=== PATIENT | female | born 1955 | race Caucasian/White ===

== ENCOUNTER → 2019-09-26 10:54 | Outpatient (BNVA) | payer MEDICARE, MEDICAID, SELFPAY | PROVIDERS: Family Provider Nurse Practitioner; PCP Nurse Practitioner; Visit Provider Nurse Practitioner | DX: F33.2 Major depressive disorder, recurrent severe without psychotic features (principal); F17.210 Nicotine dependence, cigarettes, uncomplicated | CPT/HCPCS: 99213 ==

== ENCOUNTER 2019-10-26 13:08 | Emergency (ER) | payer MEDICARE, MEDICAID, SELFPAY ==
[2019-10-26 13:15] VITALS: BP 126/72; PULSE 78; RESP 19; TEMP 36.8; O2SAT 96; BMI 21.9
--- NOTE | 2019-10-26 13:23 | XR_ITS ---
WS: [id number] PORTABLE CHEST HISTORY: dyspnea/cough COMPARISON: 06/27/2018 Mild pulmonary hyperexpansion. Linear areas of atelectasis at the lung bases. Small amount pleural th ickening. No pneumothorax. Cardiac size: Normal. Mediastinum/Aorta: Mild atherosclerosis aorta. Thoracolumbar scoliosis. XR/XR chest 1V portable [id number] IMPRESSION: Chronic emphysema and partially calcified aorta. Minimal pleural thickening versus pleural effusions.
--- NOTE | 2019-10-26 13:25 | ED_ITS ---
HPI - SOB/Dyspnea General: Chief Complaint: Shortness of Breath/Dyspnea Stated Complaint: cough, sob Time Seen by Provider: 10/26/19 13:15 History of Present Illness: HPI Narrative: 64-year-old female presents to the emergency room with complaint of shortness of breath, she has had a mildly productive cough. She reports subjective low-grade fever. She states she has a history of COPD she uses a Ventolin inhaler as needed but no maintenance inhaled medications. She has a daughter who is been tested for [place] 19 but does not yet had a result. She does not identify any specific recent travel to areas considered to be hotspots. Associated symptoms: Deny abdominal pain, chest pain, fever(s), nausea, orthopnea or vomiting Review of Systems Const: Denies: fever, chills, body aches, change in appetite, fatigue or malaise ENMT: Denies: throat pain, ear pain, nasal discharge or nasal congestion Card: Denies: chest pain, edema, shortness of breath on exertion or shortness of breath when lying down Resp: Denies: shortness of breath, productive cough or non-productive cough GI: Denies: abdominal pain, nausea, vomiting, vomiting blood, coffee grounds in vomit, diarrhea, constipation, bloating, blood in stool or black tarry stool : Denies: flank pain, difficulty urinating, painful urination, urinary frequency or urinary urgency Skin/Breast: Denies: rash or itching [facility] ED PFSH: Medical History (Updated 10/26/19 @ 15:22 by Reza Angelo DO) Major depressive disorder, recurrent severe without psychotic features Nicotine dependence, cigarettes, uncomplicated Social History (Updated 09/26/19 @ 11:06 by Stephanie Molina LPN) Smoking and tobacco status: current every day smoker cigarettes Packs smoked per day: 1 Smoking risk assessment/counseling performed?: Yes Tobacco counseling given: counseling >3 minutes Physical Exam Const: COMMON NORMALS: no apparent distress GENERAL APPEARANCE: cooperative and comfortable ORIENTATION/CONSCIOUSNESS: Yes awake, Yes oriented to person, Yes oriented to place and Yes oriented to time HENMT: COMMON NORMALS: normocephalic, head/scalp atraumatic, hearing grossly normal bilaterally, external ears normal, EAC's normal, TM's normal bilaterally, nasal mucous membranes and turbinates normal, moist oral mucous membranes and oropharynx normal HEAD & SCALP: normocephalic and atraumatic NOSE: nasal mucous membranes and turbinates normal EXTERNAL EAR: Yes external ears normal EXTERNAL AUDITORY CANAL: EAC's normal TYMPANIC MEMBRANE: TM's normal bilaterally Eye: COMMON NORMALS: PERRL, EOMs intact bilaterally, conjunctivae normal and no scleral icterus CONJUNCTIVA: Yes conjunctivae normal PUPIL: Yes PERRL Neck/C-Spine: COMMON NORMALS: full ROM, no lymphadenopathy, supple and no JVD Lymph: LYMPHATIC: no lymphadenopathy noted and no lymphedema noted Resp: COMMON NORMALS: normal respiratory effort, no retractions, no use of accessory muscles and clear to auscultation bilaterally AUSCULTATION: clear to auscultation bilaterally Cardio: COMMON NORMALS: no JVD, regular rate, regular rhythm and no murmurs RATE: regular rate RHYTHM: regular rhythm GI: COMMON NORMALS: soft to palpation and no hepatosplenomegaly AUSCULTATION: Yes normoactive bowel sounds PALPATION: Yes soft, No tender, No guarding and Yes no hepatosplenomegaly Extremity: COMMON NORMALS: normal to inspection, normal capillary refill, no clubbing, cyanosis or edema, no calf tenderness and no pedal edema Neuro: SENSORIUM/ORIENTATION: Yes oriented to person, Yes oriented to place and Yes oriented to time Skin: COMMON NORMALS: no rashes or lesions noted GENERAL SKIN EXAM: no rashes or lesions noted Course Vital Signs: Vital signs: Vital Signs Temperature 98.3 F 10/26/19 13:15 Pulse Rate 75 10/26/19 15:31 Respiratory Rate 16 10/26/19 15:31 Blood Pressure 124/80 10/26/19 15:31 Pulse Oximetry 95 10/26/19 15:31 MDM - SOB/Dyspnea MDM Narrative: Medical decision making narrative: Patient not having any respiratory distress chest x-ray clear refilled her albuterol inhaler she had 1 in the past she has been using it recently. It is effective the albuterol inhaler is quite old she thinks is nearly empty. Strongly encouraged her to follow-up with her primary care doctor for evaluation for long-term maintenance medications. Return if she has further problems. Lab Data: Labs: Lab Results 10/26/19 10/26/19 10/26/19 Range/Units 13:40 13:40 13:45 WBC 8.8 (4.0-10.0) 10^3/ uL RBC 4.41 (4.1-5.3) 10^6/u L Hgb 13.4 (11.5-15.3) g/dL Hct 40.8 (37.0-47.0) % MCV 92.5 (81-99) fL MCH 30.4 (28.0-34.0) pg MCHC 32.8 (30.0-36.0) g/dL RDW 13.1 (12.1-15.1) % Plt Count 155 (130-400) 10^3/c mm MPV 11.4 H (7.4-10.4) fL Neut % (Auto) 57.4 % Lymph % (Auto) 33.4 % [place] % (Auto) 6.6 % Eos % (Auto) 1.8 % Baso % (Auto) 0.5 % Neut # (Auto) 5.1 (1.8-7.7) 10^3/u L Lymph # (Auto) 2.9 (0.8-4.8) 10^3/u L [place] # (Auto) 0.6 (0.2-0.9) 10^3/u L Eos # (Auto) 0.2 (0.0-0.8) 10^3/u L Baso # (Auto) 0.0 (0.0-0.1) 10^3/u L Nucleated RBC % (a uto) 0 % Nucleated RBCs # 0.0 /100WBC Sodium 136 (136-145) mmol/L Potassium 3.7 (3.5-5.1) mmol/L Chloride 99 (98-107) mmol/L Carbon Dioxide 26 (22-29) mmol/L Anion Gap 14.7 (5-19) BUN 12 (8-23) mg/dL Creatinine 0.8 (0.5-0.9) mg/dL GFR Calculation 72.0 L (90-130) mL/min Glucose 90 (65-115) mg/dL Calculated Osmolal ity 278 L (285-295) mOsm/k g Calcium 9.6 (8.5-10.5) mg/dL Total Bilirubin 0.4 (0.15-1.2) mg/dL AST 23 (0-32) U/L ALT 17 (0-33) U/L Alkaline Phosphata se 63 (35-105) IU/L Total Protein 7.0 (6.6-8.7) g/dL Albumin 4.4 (3.5-5.2) g/dL Globulin 2.6 (1.3-4.6) g/dL Influenza Type A A g Negative (Negative) Influenza Type B A g Negative (Negative) Discharge Plan Discharge Patient Disposition: Home, Self-Care Clinical Impression: COPD exacerbation Condition: Stable Prescriptions: New albuterol sulfate 90 mcg/actuation HFA aerosol inhaler 2 inh INHALATION Q4H PRN (Reason: shortness of breath or wheezing) Qty: 18 RF: 0 No Action sertraline 100 mg tablet 200 mg PO DAILY Qty: 60 RF: 2 iron 325 mg (65 mg iron) Tablet 325 mg PO DAILY RF: 0 Vitamin D3 400 unit Capsule 400 unit PO DAILY RF: 0 Ambien 5 mg tablet 5 mg PO BEDTIME RF: 0 Discharge Orders: Discharge Order (Routine); Ordered 10/26/19 Ordered By: Reza Angelo Referrals: Flower Blackburn FNP [Primary Care Provider] - Discharge Diet: Usual diet Discharge Activity: Increase activity as tolerated Activity Restrictions/Additional Instructions: Low up with your primary care provider for further evaluation and for initiation of long-term contro of COPD. L Discharge Date/Time: 10/26/19 15:33 Coding Level of Care Code ED Backup Sawyer for Nika Fwd Exam Comprehensive
[2019-10-26 13:45] LABS: Basophils % 0.5 %; Eosinophils # 0.2 10^3/uL (0.0-0.8); Eosinophils % 1.8 %; Hematocrit 40.8 % (37.0-47.0); Hemoglobin 13.4 g/dL (11.5-15.3); Lymphocytes # 2.9 10^3/uL (0.8-4.8); Lymphocytes % 33.4 %; Mean Corpuscular HGB Conc 32.8 g/dL (30.0-36.0); Mean Corpuscular Hemoglobin 30.4 pg (28.0-34.0); Mean Corpuscular Volume 92.5 fL (81-99); Mean Platelet Volume 11.4 fL (7.4-10.4); Monocytes # 0.6 10^3/uL (0.2-0.9); Monocytes % 6.6 %; Neutrophils # 5.1 10^3/uL (1.8-7.7); Neutrophils % 57.4 %; Nucleated Red Blood Cells % 0 %; Platelet Count 155 10^3/cmm (130-400); Red Blood Count 4.41 10^6/uL (4.1-5.3); Red Cell Distribution Width 13.1 % (12.1-15.1); White Blood Count 8.8 10^3/uL (4.0-10.0)
[2019-10-26 13:52] VITALS: BP 99/71; PULSE 75; RESP 16; O2SAT 96
[2019-10-26 14:06] LABS: Alanine Aminotransferase 17 U/L (0-33); Albumin Level 4.4 g/dL (3.5-5.2); Alkaline Phosphatase 63 IU/L (35-105); Anion Gap 14.7 (5-19); Aspartate Amino Transferase 23 U/L (0-32); Blood Urea Nitrogen 12 mg/dL (8-23); Calcium 9.6 mg/dL (8.5-10.5); Carbon Dioxide 26 mmol/L (22-29); Chloride 99 mmol/L (98-107); Globulin 2.6 g/dL (1.3-4.6); Glucose 90 mg/dL (65-115); Osmolality Calculated 278 mOsm/kg (285-295); Potassium 3.7 mmol/L (3.5-5.1); Sodium 136 mmol/L (136-145); Total Bilirubin 0.4 mg/dL (0.15-1.2)
[2019-10-26 14:34] LABS: Influenza A by IFA Negative (Negative); Influenza B by IFA Negative (Negative)
[2019-10-26 14:39] VITALS: BP 109/78; PULSE 77; RESP 16
[2019-10-26 15:31] VITALS: BP 124/80; PULSE 75; RESP 16; O2SAT 95
== END 2019-10-26 15:33 | disposition home or self-care (01) ==
PROVIDERS: Emergency Provider Family Medicine; Family Provider Nurse Practitioner; PCP Nurse Practitioner
DX: J44.1 Chronic obstructive pulmonary disease with (acute) exacerbation (principal); F33.2 Major depressive disorder, recurrent severe without psychotic features; F17.210 Nicotine dependence, cigarettes, uncomplicated
CPT/HCPCS: 12345; 36415; 71045; 80053; 85025; 87804; 99282; 99283

== ENCOUNTER → 2019-12-19 07:39 | Outpatient (BNVA) | payer MEDICARE, MEDICAID, SELFPAY | PROVIDERS: Family Provider Nurse Practitioner; PCP Nurse Practitioner; Visit Provider Nurse Practitioner | DX: F33.2 Major depressive disorder, recurrent severe without psychotic features (principal) | CPT/HCPCS: 99213 ==

== ENCOUNTER 2020-01-06 19:24 | Emergency (ER) | payer MEDICARE, MEDICAID, SELFPAY ==
--- NOTE | 2020-01-06 19:33 | XR_ITS ---
WS: [id number] XR wrist RT min 3V* [id number] REASON FOR EXAM: injury FINDINGS: There is evidence of widening of the interval between the scaphoid and lunate. Measured 4.4 1 mm. The ulna and radius were normal. The carpal bones otherwise were normal as well as the metacarpals. XR/XR wrist RT min 3V* [id number] IMPRESSION: Diastases of the scaphoid lunate interval.
[2020-01-06 19:50] VITALS: BP 126/71; PULSE 83; RESP 18; TEMP 37.1; O2SAT 97; BMI 21.2
--- NOTE | 2020-01-06 21:22 | W.ED.EXTPRO ---
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 Patient reports pain in the wrist area. Patient appears well. No obvious deformity is noted. MD Complaint: extremity pain Review of Systems General: Reports: 10 or more systems reviewed and unremarkable except in HPI and below Musc: Reports: joint pain (Right wrist) PFS ED PFSH: Medical History (Updated 01/06/20 @ 21:32 by SKYLAR Rabago) Major depressive disorder, recurrent severe without psychotic features Nicotine dependence, cigarettes, uncomplicated Social History (Updated 09/26/19 @ 11:06 by Stephanie Molina LPN) Smoking and tobacco status: current every day smoker cigarettes Packs smoked per day: 1 Smoking risk assessment/counseling performed?: Yes Tobacco counseling given: counseling >3 minutes Physical Exam Const: COMMON NORMALS: no acute distress and patient oriented x3 GENERAL APPEARANCE: cooperative HENMT: COMMON NORMALS: normocephalic and Normal external nose present HEAD & SCALP: normal to inspection and normocephalic NOSE: Normal external nose present MOUTH: Normal oral and palatal mucosa present THROAT: posterior oropharynx normal Eye: GENERAL EYE: appearance normal, both eyes and all related structures Neck/C-Spine: COMMON NORMALS: full ROM Chest: COMMONS NORMALS: normal inspection of the chest Resp: COMMON NORMALS: normal respiratory effort EFFORT & INSPECTION: Yes able to speak in complete sentences Cardio: COMMON NORMALS: regular rate and regular rhythm RATE: regular rate RHYTHM: regular rhythm GI: COMMON NORMALS: non-tender : COMMON NORMALS: Yes no CVA tenderness BLADDER/KIDNEY EXAM: Yes no CVA tenderness Back/Pelvis: COMMON NORMALS: no CVA tenderness and thoracic and lumbar spine normal to inspection Extremity: NARRATIVE EXTREMITY EXAM: Tenderness is noted on palpation to the right wrist. No deformity or crepitus is noted in the joint. Minimal to no swelling is noted. Neuro: COMMON NORMALS: patient oriented x3 and moves all extremities Psych: COMMON NORMALS: mental status grossly normal and cooperative Skin: COMMON NORMALS: no rashes or lesions noted GENERAL SKIN EXAM: no rashes or lesions noted Course Vital Signs: Vital signs: Vital Signs Temperature 98.8 F 01/06/20 19:50 Pulse Rate 83 01/06/20 19:50 Respiratory Rate 18 01/06/20 19:50 Blood Pressure 126/71 01/06/20 19:50 Pulse Oximetry 97 01/06/20 19:50 MDM - Extremity (Nontraumatic) MDM Narrative: Medical decision making narrative: Patient comes in for injury to her the right wrist. Exam noted no significant deformity and minimal swelling. Differential diagnosis includes but not limited to fracture, sprain, contusion. X-ray showed no obvious fracture. Reviewed exam with patient with recommendations for treatment and follow-up. Patient reported understanding. Discharge Plan Discharge Patient Disposition: Home, Self-Care Clinical Impression: Sprain and strain of wrist Condition: Stable Prescriptions: No Action sertraline 100 mg tablet 200 mg PO DAILY Qty: 60 RF: 2 Ambien 5 mg tablet 5 mg PO BEDTIME Qty: 30 RF: 2 iron 325 mg (65 mg iron) Tablet 325 mg PO DAILY RF: 0 Vitamin D3 400 unit Capsule 400 unit PO DAILY RF: 0 albuterol sulfate 90 mcg/actuation HFA aerosol inhaler 2 inh INHALATION Q4H PRN (Reason: shortness of breath or wheezing) Qty: 18 RF: 0 Discharge Orders: Discharge Order (Routine); Ordered 01/06/20 Ordered By: Severo King Referrals: Flower Blackburn FNP [Primary Care Provider] - Discharge Diet: Usual diet Discharge Activity: Increase activity as tolerated Patient Instructions: Sprains - Wrist Activity Restrictions/Additional Instructions: Elastic bandage for support and comfort. Activity as tolerated. Use acetaminophen or ibuprofen for pain. Follow-up with primary care in 1 week as needed. Coding Level of Care Code ED Art Objects Salesperson for Martyg Fwd Exam Comprehensive
== END 2020-01-06 21:49 | disposition home or self-care (01) ==
PROVIDERS: Emergency Provider Nurse Practitioner Family; PCP Nurse Practitioner
DX: S63.501A Unspecified sprain of right wrist, initial encounter (principal); S66.911A Strain of unspecified muscle, fascia and tendon at wrist and hand level, right hand, initial encounter; W03.XXXA Other fall on same level due to collision with another person, initial encounter; F17.210 Nicotine dependence, cigarettes, uncomplicated
CPT/HCPCS: 12345; 73110; 99281; 99282

== ENCOUNTER → 2020-05-19 07:39 | Outpatient (BNVA) | payer MEDICARE, MEDICAID, SELFPAY | PROVIDERS: PCP Nurse Practitioner; Visit Provider Nurse Practitioner | DX: F33.2 Major depressive disorder, recurrent severe without psychotic features (principal); F17.210 Nicotine dependence, cigarettes, uncomplicated | CPT/HCPCS: 99213 ==

== ENCOUNTER → 2020-08-06 07:43 | Outpatient (BNVA) | payer MEDICARE, MEDICAID, SELFPAY | PROVIDERS: PCP Nurse Practitioner; Visit Provider Nurse Practitioner | DX: F33.2 Major depressive disorder, recurrent severe without psychotic features (principal); F17.210 Nicotine dependence, cigarettes, uncomplicated | CPT/HCPCS: 99213 ==

== ENCOUNTER → 2020-11-11 07:52 | Outpatient (BNVA) | payer MEDICARE, MEDICAID, SELFPAY | PROVIDERS: PCP Nurse Practitioner; Visit Provider Nurse Practitioner | DX: F33.2 Major depressive disorder, recurrent severe without psychotic features (principal); F17.210 Nicotine dependence, cigarettes, uncomplicated | CPT/HCPCS: 99214 ==

== ENCOUNTER → 2021-02-03 12:44 | Outpatient (BNVA) | payer MEDICARE, MEDICAID, SELFPAY | PROVIDERS: PCP Nurse Practitioner; Visit Provider Nurse Practitioner | DX: F33.2 Major depressive disorder, recurrent severe without psychotic features (principal); F17.210 Nicotine dependence, cigarettes, uncomplicated | CPT/HCPCS: 99214 ==

== ENCOUNTER → 2021-05-06 08:21 | Outpatient (BNVA) | payer MEDICARE, MEDICAID, SELFPAY | PROVIDERS: PCP Nurse Practitioner; Visit Provider Nurse Practitioner | DX: F33.2 Major depressive disorder, recurrent severe without psychotic features (principal); F17.210 Nicotine dependence, cigarettes, uncomplicated | CPT/HCPCS: 99214 ==

== ENCOUNTER 2021-05-21 21:24 | Inpatient (IN) | payer MEDICARE, MEDICAID, SELFPAY ==
[2021-05-21 21:28] VITALS: BP 105/61; PULSE 90; RESP 24; TEMP 37.1; O2SAT 92; BMI 19.5
[2021-05-21 21:34] VITALS: BP 105/61; PULSE 86; RESP 18; TEMP 37.1; O2SAT 96
--- NOTE | 2021-05-21 21:42 | XRR_ITS ---
PROCEDURE INFORMATION: Exam: XR Right Hip Exam date and time: 05/21/2021 9:42 PM Age: 65 years old Clinical indication: Injury or trauma; Fall; Fracture of pelvis & hip; Right; Traumatic fracture; Neck of femur; Not specified TECHNIQUE: Imaging protocol: XR Right hip. Views: 1 view hip with pelvis when performed. COMPARISON: No relevant prior studies available. FINDINGS: Bones/joints: There is an acute comminuted right intertrochanteric hip fracture. No dislocation. The femoral head and neck remain intact. The right acetabulum and rami are intact. Soft tissues: Unremarkable. XR/XR hip RT 2-3V wo/w pel* [id number] IMPRESSION: Acute right intertrochanteric fracture Radiation Dose CTDIVOL = (mGy): DLP = (mGy-cm)
--- NOTE | 2021-05-21 21:49 | ED_ITS ---
HPI - Fall General: Chief Complaint: Fall Stated Complaint: FALL/HIP PAIN Time Seen by Provider: 05/21/21 21:30 Source: patient and EMS Mode of arrival: EMS Limitations: no limitations History of Present Illness: HPI Narrative: 65-year-old female who fell earlier this morning of a chair she fell onto her right side states she landed on her hip and has not been able to stand up or move that leg since then she has pain she rates a 7 out of 10 denies any other injuries denies any her head denies any neck or back pain. Her pain is sharp in nature Associated symptoms-after fall: Denies abdominal pain, chest pain or headache(s) Review of Systems Const: Denies: fever(s), chills, body aches or change in appetite Eyes: Denies: blurry vision or eye discomfort ENMT: Denies: throat pain or dental pain Card: Denies: chest pain Resp: Denies: dyspnea GI: Denies: abdominal pain, nausea, vomiting or diarrhea : Denies: dysuria Musc: Reports: extremity pain Skin/Breast: Denies: rash Neuro: Denies: headache(s) Psych: Denies: depression Rajeev/Lymph: Denies: easy bruising All/Imm: Denies: urticaria PFSH ED PFSH: Medical History (Updated 05/21/21 @ 22:18 by Dewyane Meeks MD) Major depressive disorder, recurrent severe without psychotic features Nicotine dependence, cigarettes, uncomplicated Psychiatric care Social History (Updated 09/26/19 @ 11:06 by Stephanie Molina LPN) Smoking and tobacco status: current every day smoker cigarettes Packs smoked per day: 1 Smoking risk assessment/counseling performed?: Yes Tobacco counseling given: counseling >3 minutes Physical Exam Const: COMMON NORMALS: no acute distress, patient oriented x3 and healthy appearing HENMT: COMMON NORMALS: normocephalic and atraumatic HEAD & SCALP: normocephalic and atraumatic Eye: COMMON NORMALS: Equal, round and reactive pupils present and EOMs intact bilaterally PUPIL: Yes Equal, round and reactive pupils present Neck/C-Spine: COMMON NORMALS: full ROM and supple Chest: COMMONS NORMALS: normal inspection of the chest and normal palpation of entire chest wall Resp: COMMON NORMALS: normal respiratory effort, No retractions, No use of accessory muscles and clear to auscultation bilaterally AUSCULTATION: clear to auscultation bilaterally Cardio: COMMON NORMALS: regular rate, regular rhythm and No murmurs present (Cardio) RATE: regular rate RHYTHM: regular rhythm GI: COMMON NORMALS: Normal to inspection, nondistended, normoactive bowel sounds present, Soft to palpation, non-tender and no masses PALPATION: Yes Soft to palpation Extremity: NARRATIVE EXTREMITY EXAM: Tenderness over right hip Neuro: COMMON NORMALS: patient oriented x3, moves all extremities and no focal motor deficits Psych: COMMON NORMALS: mental status grossly normal, Normal thought process present and cooperative THOUGHT PROCESS: Normal thought process present Skin: COMMON NORMALS: no rashes or lesions noted and no wounds GENERAL SKIN EXAM: no rashes or lesions noted Course Vital Signs: Vital signs: Vital Signs Temperature 98.8 F 05/21/21 21:34 Pulse Rate 86 05/21/21 21:34 Respiratory Rate 18 05/21/21 21:34 Blood Pressure 105/61 05/21/21 21:34 Pulse Oximetry 96 05/21/21 21:34 MDM - Fall MDM Narrative: Medical decision making narrative: Patient presents with a hip fracture from a fall she has no other signs of any other major injuries had no head injury spoke to orthopedist and hospitalist and will admit. Lab Data: Labs: Lab Results 05/21/21 05/21/21 05/21/21 21:30 21:30 21:30 WBC 18.2 10^3/uL H 10 ^3/uL (4.0-10.0) RBC 4.33 10^6/uL 10^6 /uL (4.1-5.3) Hgb 13.0 g/dL g/dL (11.5-15.3) Hct 39.7 % % (37.0-47.0) MCV 91.7 fl fl (81-99) MCH 30.0 pg pg (28.0-34.0) MCHC 32.7 g/dL g/dL (30.0-36.0) RDW 13.2 % % (12.1-15.1) Plt Count 167 10^3/cmm 10^3 /cmm (130-400) MPV 12.4 fL H fL (7.4-10.4) Neut % (Auto) 88.8 % % Lymph % (Auto) 5.9 % % [place] % (Auto) 4.5 % % Eos % (Auto) 0.1 % % Baso % (Auto) 0.3 % % Neut # (Auto) 16.19 10^3/uL H 1 0^3/uL (1.8-7.7) Lymph # (Auto) 1.1 10^3/uL 10^3/ uL (0.8-4.8) [place] # (Auto) 0.8 10^3/uL 10^3/ uL (0.2-0.9) Eos # (Auto) 0.0 10^3/uL 10^3/ uL (0.0-0.8) Baso # (Auto) 0.1 10^3/uL 10^3/ uL (0.0-0.1) Nucleated RBC % (a uto) 0 % % Nucleated RBCs # 0.0 /100WBC /100W BC PT 12.90 SECONDS SEC ONDS (12.1-14.9) INR 0.94 (0.8-1.2) Sodium 136 mmol/L mmol/L (136-145) Potassium 3.8 mmol/L mmol/L (3.5-5.1) Chloride 100 mmol/L mmol/L (98-107) Carbon Dioxide 25 mmol/L mmol/L (22-29) Anion Gap 14.8 (5-19) BUN 11 mg/dL mg/dL (8-23) Creatinine 0.6 mg/dL mg/dL (0.5-0.9) GFR Calculation 100.0 mL/min mL/m in (90-130) Calcium 9.4 mg/dL mg/dL (8.5-10.5) Total Bilirubin 0.4 mg/dL mg/dL (0.15-1.2) AST 23 U/L U/L (0-32) ALT 16 U/L U/L (0-33) Alkaline Phosphata se 67 IU/L IU/L (35-105) Total Protein 6.8 g/dL g/dL (6.6-8.7) Albumin 4.1 g/dL g/dL (3.5-5.2) Globulin 2.7 g/dL g/dL (1.3-4.6) Imaging Data^: xr r hip: Attestation: I personally reviewed and interpreted this imaging study as follows: My impression: r hip fx EKG Data^: EKG 1: Attestation: I personally reviewed and interpreted this EKG as follows: EKG interpretation date: 05/21/21 EKG interpretation time: 22:28 Interpretation: nsr no st or t wave abnormalities qrs 72 qtc 397 Discharge Plan Discharge Patient Disposition: Admitted As Inpatient Clinical Impression: Closed hip fracture Qualifiers: Encounter type: initial encounter Laterality: right Qualified Code(s): S72.001A - Fracture of unspecified part of neck of right femur, initial encounter for closed fracture Condition: Stable Coding Level of Care Code ED [employer] Good[employer] Examiner for Chg Fwd Exam Comprehensive
[2021-05-21] MEDS: HYDROmorphone 1 mg/mL INJ 1 mL IVP ×2 (21:52→23:29)
--- NOTE | 2021-05-21 22:12 | XRR_ITS ---
PROCEDURE INFORMATION: Exam: XR Chest Exam date and time: 05/21/2021 10:12 PM Age: 65 years old Clinical indication: Pre-operative exam; Respiratory screening exam; Patient HX: Fall today, right hip FX TECHNIQUE: Imaging protocol: XR of the chest. Views: 1 view. COMPARISON: CR XR chest 1V portable [id number] 10/26/2019 1:42 PM FINDINGS: Lungs: Unremarkable. No consolidation. Mild hyperinflation. Pleural spaces: Unremarkable. No pleural effusion. No pneumothorax. Heart/Mediastinum: Unremarkable. No cardiomegaly. Bones/joints: Unremarkable. XR/XR chest 1V portable [id number] IMPRESSION: No significant findings Radiation Dose CTDIVOL = (mGy): DLP = (mGy-cm)
--- NOTE | 2021-05-21 22:12 | ECG_ITS ---
Test Date: 2021-05-21 Pat Name: Ginny Wells Department: Room: Gender: Female Shop Helper: : 1955 Requested By: Dewayne Meeks Order Number: [id number] Holger MD: Alissa Bradshaw M.D. Measurements Intervals [place] Rate: 91 P: 80 HI: 163 QRS: 69 QRSD: 72 T: 89 QT: 349 QTc: 430 Interpretive Statements SINUS RHYTHM INDETERMINATE AXIS POSSIBLE RIGHT VENTRICULAR CONDUCTION DELAY [RSR (QR) IN V1/V2] No previous ECG available for comparison Electronically Signed On 05-21-2021 23:58:05 CDT by Alissa Bradshaw M.D. [email or web address]
[2021-05-21 22:20] LABS: Basophils # 0.1 10^3/uL (0.0-0.1); Basophils % 0.3 %; Eosinophils % 0.1 %; Hematocrit 39.7 % (37.0-47.0); Lymphocytes # 1.1 10^3/uL (0.8-4.8); Lymphocytes % 5.9 %; Mean Corpuscular HGB Conc 32.7 g/dL (30.0-36.0); Mean Corpuscular Volume 91.7 fl (81-99); Mean Platelet Volume 12.4 fL (7.4-10.4); Monocytes # 0.8 10^3/uL (0.2-0.9); Monocytes % 4.5 %; Neutrophils # 16.19 10^3/uL (1.8-7.7); Neutrophils % 88.8 %; Nucleated Red Blood Cells % 0 %; Platelet Count 167 10^3/cmm (130-400); Red Blood Count 4.33 10^6/uL (4.1-5.3); Red Cell Distribution Width 13.2 % (12.1-15.1); White Blood Count 18.2 10^3/uL (4.0-10.0)
[2021-05-21 22:23] LABS: INR 0.94 (0.8-1.2)
[2021-05-21 22:29] LABS: Alanine Aminotransferase 16 U/L (0-33); Albumin Level 4.1 g/dL (3.5-5.2); Alkaline Phosphatase 67 IU/L (35-105); Anion Gap 14.8 (5-19); Aspartate Amino Transferase 23 U/L (0-32); Blood Urea Nitrogen 11 mg/dL (8-23); Calcium 9.4 mg/dL (8.5-10.5); Carbon Dioxide 25 mmol/L (22-29); Chloride 100 mmol/L (98-107); Creatine Phosphokinase 239 U/L (26-192); Globulin 2.7 g/dL (1.3-4.6); Glucose 118 mg/dL (65-115); Osmolality Calculated 282 mOsm/kg (285-295); Potassium 3.8 mmol/L (3.5-5.1); Sodium 136 mmol/L (136-145); Total Bilirubin 0.4 mg/dL (0.15-1.2); Total Protein 6.8 g/dL (6.6-8.7)
--- NOTE | 2021-05-21 22:49 | PM.HP ---
Providers/Chief Complaint Admitting Physician: Rina Woodward MD Primary Care Provider: SKYLAR Landis Chief Complaint: FALL/HIP PAIN History of Present Illness Ginny Wells is a 65 year old female who presented to the emergency room after a fall at home. She had been putting some stuff away in a tall cabinet. She stood on a chair. While on the chair she moved her feet around and happened to put her foot on an upholstery nail that was sticking up in the chair. This caused some pain and in her reaction to this she fell on the floor landing on her right hip. This was around 11:00 or so this morning. It took her about 8 hours to maneuver down the hallway to get to a phone where she could contact her family. Almost every other day they are there at some point during the daytime hours but just happened to have other obligations today. She did hit her elbows and thinks that she hit her head but denies any loss of consciousness. The fall was completely accidental without any preceding symptoms. She was ultimately found to have a right intertrochanteric femur fracture, comminuted, nondisplaced. She is being admitted for further evaluation and treatment. In talking with Mrs. Wells, she has been having increasing dyspnea on exertion lately. Some degree of dyspnea on exertion has been an issue for her for some time. She does smoke about a pack of cigarettes a day. Occasionally she will use one of her daughters inhalers. The last couple of months however the dyspnea on exertion has been progressively worsening to where she cannot walk very far without having to pause to catch her breath. Rest usually does improve things. She denies associated chest pain or other symptoms beyond difficulty breathing. She denies significant productive cough or nonproductive cough or audible wheezing. She does not generally go to the doctor so does not have known medical problems beyond depression. Her daughter, who is here with her does have coronary artery disease that has required intervention. Her paternal family history is unremarkable for coronary artery disease. Mrs. Wells however has a brother that in his early 70s from coronary artery disease and had bypass surgery. Her parents also had coronary artery disease. She has been worried that something is wrong with her heart for some time but has not sought medical evaluation for this. She denies any lower extremity, orthopnea or PND. She is able to take care of her activities of daily living but again has to take breaks periodically due to breathing difficulties. Mrs. Wells has never had any surgery or anesthesia before. No known family history of anesthesia problems. No report of any bleeding disorders or clotting disorders. No history of diabetes, kidney disease, hypertension. She has had 2 vaginal deliveries without complications. Review of Systems Const: Denies: fever(s), chills or change in weight ENMT: Reports: nasal discharge; Denies: throat pain or epistaxis Card: Reports: dyspnea on exertion; Denies: chest pain, palpitations, edema or orthopnea Resp: Reports: dyspnea, productive cough (rarely) and wheezing (soometimes); Denies: non-productive cough or pain on inspiration GI: Denies: abdominal pain, nausea, vomiting, diarrhea, constipation, hematochezia or melena : Denies: difficulty voiding or hematuria Musc: Reports: extremity pain (right leg) and joint pain (right hip) Skin/Breast: Denies: sores Neuro: Denies: headache(s), weakness in extremities (until fall today), sensory changes, difficulty walking (until fall today) or frequent falls Psych: Reports: depression (controlled with medication); Denies: anxiety Rajeev/Lymph: Denies: easy bruising or easy bleeding Medications/Allergies Home Medications Medication Instructions Recorded Confirmed Last Taken Type albuterol sulfate 2 inh INHALATION Q4H PRN #18 gm 10/26/19 02/03/21 Unknown Rx sertraline 100 mg tablet 200 mg PO DAILY #60 tab 02/03/21 02/03/21 Unknown Rx zolpidem 5 mg tablet 5 mg PO BEDTIME #30 tab 02/03/21 02/03/21 Unknown Rx acetaminophen 6,650 mg PO QID PRN 05/21/21 05/21/21 Unknown History Allergies Allergy/AdvReac Type Severity Reaction Status Date / Time No Known Allergies Allergy Unverified 09/26/19 11:04 PFSH Acute PFSH: Medical History (Updated 05/21/21 @ 23:42 by Rina Woodward MD) Major depressive disorder, recurrent severe without psychotic features Nicotine dependence, cigarettes, uncomplicated Psychiatric care Followed at [facility], [place] Surgical History (Updated 05/21/21 @ 23:31 by Rina Woodward MD) No pertinent past surgical history no prior surgery on 05/21/2021 Social History (Updated 05/21/21 @ 23:28 by Rina Woodward MD) Smoking and tobacco status: current every day smoker cigarettes Packs smoked per day: 1 Alcohol intake: never Substance/Drug Use: never Lives independently: Yes Number of children: 2 Female Reproductive History: : 3 Para: 2 Vitals/I&O/Wt Last Vital Signs Temp 98.8 F 05/21/21 21:34 Pulse 86 05/21/21 21:34 Resp 18 05/21/21 21:34 BP 105/61 05/21/21 21:34 Pulse Ox 96 05/21/21 21:34 Weight last 48 hrs Weight 49.895 kg Physical Exam Narrative: EXAM NARRATIVE: Constitutional: Awake and alert, oriented x3, cooperative HEENT: Normocephalic, atraumatic, pupils are equal bilaterally, extraocular movements are intact, oropharynx with moist mucous membranes Neck: Supple, no JVD Respiratory: Clear to auscultation bilaterally although with prolonged expiratory phase, slight barrel chest, no rales rhonchi or wheezes noted Cardiovascular: Regular rate and rhythm, normal S1 and S2, no murmurs, apical impulse is not displaced, no gallops or rubs Abdomen: Soft, nontender, nondistended with positive bowel sounds Extremities: Patient feels most comfortable lying on her right hip with her hip in flexion and knee in flexion. I am unable to visualize currently for any external bruising due to her positioning. No pitting edema to either lower extremity, brisk capillary refill and 1+ dorsalis pedis bilaterally Skin: Some minor bruising right elbow, skin is dry Neuro: Speech clear, face symmetric, moves all extremities although limited in the right lower extremity due to break, sensation intact to light touch at both feet Psych: Normal affect Data : 05/21/21 21:30 05/21/21 21:30 Other Labs: Laboratory Results WBC 18.2 10^3/uL (4.0-10.0) H 05/21/21 21:30 RBC 4.33 10^6/uL (4.1-5.3) 05/21/21 21:30 Hgb 13.0 g/dL (11.5-15.3) 05/21/21 21:30 Hct 39.7 % (37.0-47.0) 05/21/21 21: MCV 91.7 fl (81-99) 05/21/21 21:30 MCH 30.0 pg (28.0-34.0) 05/21/21 21: MCHC 32.7 g/dL (30.0-36.0) 05/21/21 21:30 RDW 13.2 % (12.1-15.1) 05/21/21 21:30 Plt Count 167 10^3/cmm (130-400) 05/21/21 21:30 MPV 12.4 fL (7.4-10.4) H 05/21/21 21:30 Neut % (Auto) 88.8 % 05/21/21 21: Lymph % (Auto) 5.9 % 05/21/21 21: Banner % (Auto) 4.5 % 05/21/21 21:30 Eos % (Auto) 0.1 % 05/21/21 21: Baso % (Auto) 0.3 % 05/21/21 21:30 Neut # (Auto) 16.19 10^3/uL (1.8-7.7) H 05/21/21 21:30 Lymph # (Auto) 1.1 10^3/uL (0.8-4.8) 05/21/21 21:30 Banner # (Auto) 0.8 10^3/uL (0.2-0.9) 05/21/21 21:30 Eos # (Auto) 0.0 10^3/uL (0.0-0.8) 05/21/21 21:30 Baso # (Auto) 0.1 10^3/uL (0.0-0.1) 05/21/21 21:30 Nucleated RBC % (auto) 0 % 05/21/21 21:30 Nucleated RBCs # 0.0 /100WBC 05/21/21 21: PT 12.90 SECONDS (12.1-14.9) 05/21/21 21:30 INR 0.94 (0.8-1.2) 05/21/21 21:30 Sodium 136 mmol/L (136-145) 05/21/21 21:30 Potassium 3.8 mmol/L (3.5-5.1) 05/21/21 21:30 Chloride 100 mmol/L (98-107) 05/21/21 21:30 Carbon Dioxide 25 mmol/L (22-29) 05/21/21 21:30 Anion Gap 14.8 (5-19) 05/21/21 21:30 BUN 11 mg/dL (8-23) 05/21/21 21:30 Creatinine 0.6 mg/dL (0.5-0.9) 05/21/21 21:30 GFR Calculation 100.0 mL/min (90-130) 05/21/21 21:30 Glucose 118 mg/dL (65-115) H 05/21/21 21:30 Calculated Osmolality 282 mOsm/kg (285-295) L 05/21/21 21:30 Calcium 9.4 mg/dL (8.5-10.5) 05/21/21 21:30 Total Bilirubin 0.4 mg/dL (0.15-1.2) 05/21/21 21:30 AST 23 U/L (0-32) 05/21/21 21:30 ALT 16 U/L (0-33) 05/21/21 21:30 Alkaline Phosphatase 67 IU/L (35-105) 05/21/21 21:30 Creatine Kinase 239 U/L (26-192) H 05/21/21 21:30 Troponin T Gen 5 ng/L 9 ng/L (0-10) 05/21/21 23:45 Total Protein 6.8 g/dL (6.6-8.7) 05/21/21 21:30 Albumin 4.1 g/dL (3.5-5.2) 05/21/21 21:30 Globulin 2.7 g/dL (1.3-4.6) 05/21/21 21:30 Impressions Hip/Pelvis X-Ray 05/21/21 21:42 IMPRESSION: Acute right intertrochanteric fracture Radiation Dose CTDIVOL = (mGy): DLP = (mGy-cm) Chest X-Ray 05/21/21 22:12 IMPRESSION: No significant findings Radiation Dose CTDIVOL = (mGy): DLP = (mGy-cm) Twelve-lead EKG per my interpretation with sinus rhythm, no acute ST segment changes A&P Assessment and plan (1) Accidental fall from chair: Status: Acute Qualifiers: Encounter type: initial encounter Qualified Code(s): W07.XXXA - Fall from chair, initial encounter (2) Closed intertrochanteric fracture of right femur: Status: Acute Qualifiers: Encounter type: initial encounter Fracture alignment: nondisplaced Qualified Code(s): S72.144A - Nondisplaced intertrochanteric fracture of right femur, initial encounter for closed fracture (3) Dyspnea on exertion: Present for some time but has been progressively worsening over the last few months, improves with rest or sometimes an inhaler that she borrowed from her daughter, no associated chest pain, orthopnea or PND nor lower extremity edema. She does have a family history of a brother that from cardiac arrest and had bypass surgery in his early 70s and a daughter that has known coronary artery disease (with a father without known history of coronary artery disease) Status: Acute (4) Nicotine dependence, cigarettes, uncomplicated: Historically uncomplicated as she does not go to the doctor. I suspect, however, that she is describing development of COPD over time. Status: Chronic (5) Major depressive disorder, recurrent severe without psychotic features: Chronically on sertraline and Ambien Status: Chronic Additional A&P Information CK elevation Leukocytosis and hyperglycemia, both suspected to be reactive in nature Inpatient admission Low volume IV fluids, recheck CK and renal function in the morning Will check baseline troponin and BNP Given escalation of dyspnea on exertion described lately and family history of coronary artery disease will get echocardiogram in the morning. EKG without any acute ST segment changes. Denies episodes of chest pain with dyspnea. Pending results of above, tentative plan for surgical intervention tomorrow versus need to further evaluate Check lipid panel and A1c for risk stratification Orthopedics has been paged, consult order placed for surgical intervention As needed breathing treatments, monitoring for definitive COPD symptoms Incentive spirometer Nicotine patch if needed Continue home sertraline Continue home Ambien but changed to as needed Pain control [place] catheter placement perioperatively Check urinalysis SCDs for DVT prophylaxis; no pharmacological DVT prophylaxis currently secondary to potential surgery tomorrow Covid testing pre-op and pre-possible SNF - discussed with patient Pepcid for GI prophylaxis Reviewed with patient the importance of establishing care with a primary care provider on at least an annual basis. We also discussed importance of flu and pneumonia vaccines. She has not had a Covid vaccine. She is not up-to-date with screening recommendations such as mammography or colonoscopy and the like. Suggested a few providers to consider that would be convenient for her. Discussed with patient briefly the importance of smoking cessation in regards to her overall health, in particular cardiac health (less than 5 minutes) In terms of disposition, patient does have a support system with her children, one of whom has been a caregiver, and would probably like to go home with home health care services if she does okay postoperatively. We also talked about the option of skilled placement for rehabilitation. Supportive care otherwise Findings, concerns and plans were discussed with patient and her children with her permission and all were given an opportunity to ask questions. Full code Attestations Medical Necessity Statement*: Anticipated stay greater than 2 midnights and patient with accidental fall sustaining a hip fracture that will require surgical intervention. She also describes increasing dyspnea on exertion of late with plans as indicated. Coding Level of Care Code Acute Ground Systems Engineer for Nika Lopez Diagnoses Accidental fall from chair W07.XXXA Encounter type: initial encounter Closed intertrochanteric fracture of right femur S72.144A Encounter type: initial encounter Fracture alignment: nondisplaced Dyspnea on exertion R06.00 Nicotine dependence, cigarettes, uncomplicated F17.210 Major depressive disorder, recurrent severe without psychotic features F33.2
[2021-05-22] VITALS (20 sets, daily range): BP systolic 91–134; BP diastolic 58–97; PULSE 70–89; RESP 13–18; TEMP 36.8–37.8; O2SAT 91–99; BMI 21.9
--- NOTE | 2021-05-22 | SCC_ITS ---
Procedure Done: 1. Right intra medullary hip nail 47.0 seconds of fluoroscopic guidance, for a cumulative dose of 4.54 mGy, was provided to Dr. Bryson by the radiology department. C-arm images of the RIGHT hip were saved for the patient's permanent record. [facility]
--- NOTE | 2021-05-22 00:11 | USCV_ITS ---
Ginny Wells Age: 65 Gender: F : 1955 Exam Date: 05/22/2021 06:52 Ordering Phys: Rina Woodward MD Technologist: ALLAN Exam Location: [facility] [place] Indication: DYSPNEA ON EXERTION BP: 93 / 58 HR: 77 Rhythm: Sinus Technical Quality: Adequate MEASUREMENTS (Male / Female) Normal Values 2D ECHO LV Diastolic Diameter PLAX 3.4 cm 4.2 - 5.9 / 3.9 - 5.3 cm LV Systolic Diameter PLAX 2.3 cm IVS Diastolic Thickness 1.0 cm 0.6 - 1.0 / 0.6 - 0.9 cm IVS Systolic Thickness 1.2 cm LVPW Diastolic Thickness 0.9 cm 0.6 - 1.0 / 0.6 - 0.9 cm LVPW Systolic Thickness 1.3 cm LVOT Diameter 2.0 cm LV Ejection Fraction 2D Teich 63.7 % LV Ejection Fraction MOD 2C 61.2 % LV Ejection Fraction 2C AL 61.1 % LA Diameter 2.3 cm LA Width 3.1 cm LA Height 2.3 cm RA Width 2.5 cm RA Height 3.6 cm Aorta at Sinotubular Diameter 2.0 cm DOPPLER AV Peak Velocity 150.0 cm/s LVOT Peak Velocity 104.0 cm/s AV Area Cont Eq vti 2.0 cm squared AV Area Cont Eq pk 2.2 cm squared MV Area PHT 5.0 cm squared Mitral E to A Ratio 1.2 MV E' Velocity 49.5 cm/s Mitral E to MV E' Ratio 6.1 Mitral E to LV E' Lateral Ratio 5.8 Mitral E to LV E' Septal Ratio 6.6 TR Peak Velocity 279.3 cm/s TR Peak Gradient 31.2 mmHg TV Peak E Velocity 45.0 cm/s Right Atrial Pressure 3.0 mmHg Pulmonary Artery Systolic Pressu 34.2 mmHg PV Peak Velocity 85.0 cm/s RV Acceleration Time 0.1 s RV Ejection Time 0.3 s RV AcT/ET 0.3 FINDINGS Left Ventricle Normal left ventricular cavity size. Normal left ventricular systolic function. Left ventricular ejection fraction is estimated at 63 %. No regional wall motion abnormalities. Grade II/IV diastolic dysfunction, moderately elevated filling pressures. Right Ventricle Normal right ventricular systolic function. RVSP could not be calculated due to incomplete tricuspid regurgitation velocity profile. Right Atrium The right atrium is normal in size. Left Atrium The left atrium is normal in size. Mitral Valve Moderately thickened mitral valve. No mitral valve stenosis. Trace mitral valve regurgitation. There appeared to be slight mitral valve bowing into atrium does not qualify for prolapse. Aortic Valve Moderate aortic valve calcification. No aortic valve stenosis. Trace aortic valve regurgitation. Tricuspid Valve Structurally normal tricuspid valve without significant stenosis or regurgitation. Pulmonary artery systolic pressure is normal. Pulmonic Valve Structurally normal pulmonic valve without significant stenosis. There is no pulmonic regurgitation. Pericardium Normal pericardium without effusion. Aorta Normal ascending aorta dimension. CONCLUSIONS 1-Normal left ventricular cavity size. Normal left ventricular systolic function. Left ventricular ejection fraction is estimated at 63 %. No regional wall motion abnormalities. Grade II/IV diastolic dysfunction, moderately elevated filling pressures. 2-Normal right ventricular systolic function. RVSP could not be calculated due to incomplete tricuspid regurgitation velocity profile. 3-Moderately thickened mitral valve. No mitral valve stenosis. Trace mitral valve regurgitation. There appeared to be slight mitral valve bowing into atrium does not qualify for prolapse. 4-Moderate aortic valve calcification. No aortic valve stenosis. Trace aortic valve regurgitation. 5-There is no pericardial effusion. 6-Right atrial pressure is around 5 mm of mercury. 7-There are no prior echocardiogram studies to compare. Vinh Marte MD (Electronically Signed) Final Date: 24 May 2021 12:37 S
[2021-05-22 00:15] LABS: Troponin T (5th) Once 9 ng/L (0-10)
[2021-05-22] MEDS: HYDROcodone-acetaminophen 5-325 mg Tablet 1 TAB PO ×3 (01:14→17:18)
[2021-05-22] MEDS: gabapentin 300 mg Capsule 600 MG PO (01:15)
[2021-05-22] MEDS: D5-NS 0.45% + KCL 20 mEq 20 MEQ/1,000 ML BAG 75 MEQ IV (01:27)
[2021-05-22 03:11] LABS: Add Urine Microscopic? NO; Charge for UA Resulting for Rev
[2021-05-22 03:41] LABS: Urine Appearance Clear (CLEAR); Urine Color Yellow (Yellow)
[2021-05-22 03:42] LABS: Bilirubin Urine Neg (Negative); Blood Urine Neg (Negative); Glucose Urine UA Norm (Normal); Ketones Urine Negative (Negative); Leukocyte Esterase Urine Negative (Negative); Nitrate Urine Negative (Negative); Protein Urine Neg (Negative); Urobilinogen Urine 1 mg/dL (Negative); pH Urine 6 (5-7)
[2021-05-22 03:50] LABS: SARS Covid-2 Antigen Negative (Negative)
[2021-05-22] MEDS: HYDROmorphone 1 mg/mL INJ 1 mL 0.5 MG IVP ×2 (05:30→13:57)
[2021-05-22 06:00] LABS: Basophils % 0.3 %; Eosinophils % 0.2 %; Hematocrit 33.3 % (37.0-47.0); Hemoglobin 10.9 g/dL (11.5-15.3); Lymphocytes # 1.9 10^3/uL (0.8-4.8); Lymphocytes % 15.6 %; Mean Corpuscular HGB Conc 32.7 g/dL (30.0-36.0); Mean Corpuscular Hemoglobin 30.7 pg (28.0-34.0); Mean Corpuscular Volume 93.8 fl (81-99); Mean Platelet Volume 11.9 fL (7.4-10.4); Monocytes # 0.9 10^3/uL (0.2-0.9); Monocytes % 7.8 %; Neutrophils # 9.08 10^3/uL (1.8-7.7); Neutrophils % 75.5 %; Nucleated Red Blood Cells % 0 %; Platelet Count 116 10^3/cmm (130-400); Red Blood Count 3.55 10^6/uL (4.1-5.3); Red Cell Distribution Width 13.2 % (12.1-15.1)
--- NOTE | 2021-05-22 06:00 | ECG_ITS ---
[facility] Test Date: 2021-05-22 Pat Name: Ginny Wells Department: Room: 279 Gender: Female Rn Hematology: : 1955 Requested By: Rina Woodward Order Number: [id number] Holger MD: Bibi Nunez M.D. Measurements Intervals [place] Rate: 74 P: 79 [place]: 172 QRS: 64 QRSD: 72 T: 59 QT: 382 QTc: 425 Interpretive Statements SINUS RHYTHM Compared to ECG 05/21/2021 22:28:15 Indeterminate axis no longer present Electronically Signed On 05-23-2021 8:57:19 CDT by Bibi Nunez M.D. [id number]
[2021-05-22 06:13] LABS: Anion Gap 13.1 (5-19); Blood Urea Nitrogen 10 mg/dL (8-23); Calcium 8.1 mg/dL (8.5-10.5); Carbon Dioxide 24 mmol/L (22-29); Chloride 104 mmol/L (98-107); Glomerular Filtration Rate 123.4 mL/min (90-130); Glucose 118 mg/dL (65-115); Magnesium 1.7 mg/dL (1.7-2.3); Osmolality Calculated 284 mOsm/kg (285-295); Phosphorus 3.5 mg/dL (2.5-4.5); Potassium 4.1 mmol/L (3.5-5.1); Sodium 137 mmol/L (136-145)
[2021-05-22 06:27] LABS: Chol HDL Ratio 4.24 mg/dL (0.0-4.40); Cholesterol 191 mg/dL (0-200); HDL Cholesterol 45 mg/dL (60-100); LDL Cholesterol Calculated 131 mg/dL (50-129); LDL HDL Ratio 2.91 RATIO (0.00-3.22); NT Pro B Type Natriuretic Pept 207 pg/mL (0-125); Triglycerides 74 mg/dL (0-150)
[2021-05-22 06:28] LABS: Creatine Phosphokinase 450 U/L (26-192)
[2021-05-22 06:33] LABS: Estmated Average Glucose 97
--- NOTE | 2021-05-22 06:35 | PC.NURSE ---
Dr Woodward notified of pt CK of 450 a CH. No new orders at this time.
--- NOTE | 2021-05-22 06:36 | P.CONIM_ITS ---
Providers/Reason For Consult Consulting Physician/Specialty*: Orthopedics Reason for Consult*: Right Hip and Wrist Pain Attending Physician: Rina Woodward MD Primary Care Provider: SKYLAR Landis History of Present Illness History of Present Illness Ginny Wells is a 65 year old female who presented to [facility] emergency room complaining of right hip pain following a fall at home. She was standing on a chair that gave way causing her to fall. This happened on 05/21/2021. X-rays confirmed a right hip fracture orthopedics was then consulted for evaluation more definitive treatment. She is evaluated in room 279 complaining of right wrist and right hip pain following the fall. Describes it as sharp pain any movement makes it much worse. She is very somnolent this morning. No family is present. Any movement of the right wrist and thumb cause her discomfort. Describes as aching sharp pain. Denies any elbow or shoulder pain denies any neck pain. Unable to recall if she lost consciousness. She also complains of right hip pain and movement of the right lower extremity intensifies her right hip pain. She has denies any knee or ankle pain. Moves all digits. Describes as sharp stabbing in nature rest gives her some temporary relief. She describes back pain as well. All of this pain as a result following the fall at home. Review of Systems Narrative: No history of having received anesthesia, no history of bleeding or clotting disorders Const: Denies: fever(s), chills, body aches, change in appetite or change in weight Eyes: Denies: blurry vision or eye discomfort ENMT: Reports: nasal discharge; Denies: throat pain, dental pain or epistaxis Card: Reports: dyspnea on exertion; Denies: chest pain, palpitations, edema or orthopnea Resp: Reports: dyspnea, productive cough (rarely) and wheezing (soometimes); Denies: non-productive cough or pain on inspiration GI: Denies: abdominal pain, nausea, vomiting, diarrhea, constipation, hematochezia or melena : Denies: difficulty voiding, dysuria or hematuria Musc: Reports: extremity pain (right leg) and joint pain (right hip) Skin/Breast: Denies: rash or sores Neuro: Denies: headache(s), weakness in extremities (until fall today), sensory changes, difficulty walking (until fall today) or frequent falls Psych: Reports: depression (controlled with medication); Denies: anxiety Rajeev/Lymph: Denies: easy bruising or easy bleeding All/Imm: Denies: urticaria Meds/Allergies Home Medications and Allergies Home Medications Medication Instructions Recorded Confirmed Last Taken Type albuterol sulfate 2 inh INHALATION Q4H PRN #18 gm 10/26/19 05/21/21 Unknown Rx sertraline 100 mg tablet 200 mg PO DAILY #60 tab 02/03/21 05/21/21 05/21/21 Rx zolpidem 5 mg tablet 5 mg PO BEDTIME #30 tab 02/03/21 05/21/21 05/20/21 Rx acetaminophen 6,650 mg PO QID PRN 05/21/21 05/21/21 Unknown History Allergies Allergy/AdvReac Type Severity Reaction Status Date / Time No Known Allergies Allergy Unverified 09/26/19 11:04 Current Medications Current Medications Generic Name Dose Route Start Last Admin Trade Name Freq PRN Reason Stop Dose Admin Hydrocodone Bitart/Acetaminophen 1 tab 05/22/21 00:11 05/22/21 01:14 Hydrocodone-Acetaminophen 5-325 Mg Tablet PO 1 tab Q4H PRN Administration MODERATE PAIN Hydromorphone HCl 0.5 mg 05/21/21 23:15 05/22/21 05:30 Hydromorphone 1 Mg/Ml Inj 1 Ml IVP 0.5 mg Q4H PRN Administration SEVERE PAIN Potassium Chloride/Dextrose/Sod Cl 20 meq in 1,000 mls @ 75 mls/hr 05/22/21 00:11 05/22/21 01:27 D5-Ns 0.45% + Kcl 20 Meq IV 75 mls/hr .[id number] GINO Administration PFSH Acute PFSH: Medical History (Updated 05/22/21 @ 06:55 by ARETHA Perez) Major depressive disorder, recurrent severe without psychotic features Nicotine dependence, cigarettes, uncomplicated Psychiatric care Followed at [facility] Surgical History (Updated 05/21/21 @ 23:31 by Rina Woodward MD) No pertinent past surgical history no prior surgery on 05/21/2021 Social History (Updated 05/21/21 @ 23:28 by Rina Woodward MD) Smoking and tobacco status: current every day smoker cigarettes Packs smoked per day: 1 Alcohol intake: never Substance/Drug Use: never Lives independently: Yes Number of children: 2 Female Reproductive History: : 3 Para: 2 Vitals/I&O/Wt Last Vital Signs Temp 98.8 F 05/22/21 04:00 Pulse 76 05/22/21 05:00 Resp 15 05/22/21 05:30 BP 93/58 05/22/21 04:00 Pulse Ox 94 05/22/21 05:30 05/21/21 05/21/21 05/22/21 14:59 22:59 06:59 Output Total 500 / 500 Balance -500 / -500 Weight last 48 hrs Weight 112 lb 4 oz Weight 110 lb Physical Exam Narrative: EXAM NARRATIVE: She is alert oriented but very somnolent on evaluation. She is nontender with palpation about the cervical spine she rotates fully without any obvious distress. Does not have any palpable pain over either shoulder or elbow. She has full range of motion of her left wrist and hand. She is tender with palpation over the right distal radius region. She has snuffbox tenderness on the right. Movement of her fingers cause her pain in the thumb she has good cap refill in all digits appears to have normal sensation light touch. She has full range of motion of both elbows and shoulders. Mild tenderness diffusely through the thoracic and lumbar region. She has palpable pain over her right hip with obvious deformity active external rotation. She has positive logroll on the right and negative on the left. She has normal station light touch in both lower extremities skin is clear warm fem oral good cap refill dorsalis pedis posterior pulses are palpable. Calves are supple. She is full range of motion of the left lower extremity at the hip knee and ankle. HENMT: COMMON NORMALS: normocephalic HEAD & SCALP: normocephalic Resp: COMMON NORMALS: normal respiratory effort Cardio: COMMON NORMALS: regular rate and regular rhythm RATE: regular rate RHYTHM: regular rhythm GI: COMMON NORMALS: non-tender : COMMON NORMALS: Yes no CVA tenderness BLADDER/KIDNEY EXAM: Yes no CVA tenderness Back/Pelvis: COMMON NORMALS: no CVA tenderness Psych: OTHER: Patient is very somnolent this morning awakes when spoken to briefly but then drifts back to sleep. In no obvious distress. Urinary Catheter Management^: Barroso: Cath Placed During This Visit: yes Reason for Continuing Indwelling Catheter: Required Immobilization for Trauma or Surgery or Anesthesia Urinary Catheter Date of Insertion: 05/22/21 Urinary Catheter Time of Insertion: 02:30 A&P Assessment and plan (1) Closed intertrochanteric fracture of right femur: Based on her right hip fracture will recommend an open reduction total fixation of the right hip. We will keep her n.p.o. Wait for medical clearance. Based on the right wrist pain and injury we will get her into a [id number] thumb spica splint. Dr. Donald recommended sending her to a hand specialist. Discussed this at length with Dr. Bryson agrees with above-stated plan. Status: Acute Qualifiers: Encounter type: initial encounter Fracture alignment: nondisplaced Qualified Code(s): S72.144A - Nondisplaced intertrochanteric fracture of right femur, initial encounter for closed fracture (2) Right wrist pain: Status: Acute Coding Level of Care Code Acute Cash Processing Specialist for [facility] Diagnoses Closed intertrochanteric fracture of right femur S72.144A Encounter type: initial encounter Fracture alignment: nondisplaced Right wrist pain M25.531
[2021-05-22] MEDS: famotidine 20 mg Tablet PO ×2 (08:12→17:18)
[2021-05-22] MEDS: docusate sodium 100 mg Capsule PO ×2 (08:12→17:18)
[2021-05-22] MEDS: sertraline 100 mg Tablet 200 MG PO (08:12)
[2021-05-22] MEDS: sodium chloride 0.9% 1,000 ML 30 ML IV (10:15)
--- NOTE | 2021-05-22 10:55 | ANES.PREANE2 ---
Pre-Anesthetic Assessment Pre-Anesthetic Assessment: Height/Weight: Height 1.52 m Weight 50.916 kg Temp Pulse Resp BP Pulse Ox 98.2 F 73 16 91/64 93 05/22/21 08:00 05/22/21 08:00 05/22/21 08:00 05/22/21 08:00 05/22/21 08:00 Proposed Procedure: Operation Date: 05/22/21 11:50 Proposed Procedures p Trochanteric Femoral Nail(Right) - Obdulio H Adelaide, DO Was Beta Jonny taken within 24 hours: N/A Was Clonidine taken within 24 hours: N/A Last intake: Intake Last Liquid Date 05/21/21 Last Liquid Time 13:00 Last Solid Date 05/21/21 Last Solid Time 11:00 Social: Social History: Tobacco and No alcohol Exam: Pre-Anes Outpt Exam: alert, oriented x 3 and regular rate & rhythm Airway: Submandibular: WNL Cervical ROM: WNL MP: 2 Dentition: Partials Pulmonary: Pulmonary: COPD and FORD Neuropsych: Neuropsych: Anxiety and Depression Anesthetic Plan: ASA status: 3 Anesthesia: General Risk of > 500 ml blood loss (7ml/kg in children): No Meds/Allergies Current Medications: Current Medications Generic Name Dose Route Start Last Admin Trade Name Freq PRN Reason Stop Dose Admin Hydrocodone Bitart /Acetaminophen 1 tab 05/22/21 00:11 05/22/21 01:14 Hydrocodone-Acet aminophen 5-325 Mg Tablet PO 1 tab Q4H PRN Administration MODERATE PAIN Docusate Sodium 100 mg 05/22/21 09:00 05/22/21 08:12 Docusate Sodium 100 Mg Capsule PO 100 mg BID GINO Administration Famotidine 20 mg 05/22/21 09:00 05/22/21 08:12 Famotidine 20 Mg Tablet PO 20 mg BID GINO Administration Hydromorphone HCl 0.5 mg 05/21/21 23:15 05/22/21 05:30 Hydromorphone 1 Mg/Ml Inj 1 Ml IVP 0.5 mg Q4H PRN Administration SEVERE PAIN Potassium Chloride /Dextrose/Sod Cl 20 meq in 1,000 m ls @ 75 mls/hr 05/22/21 00:11 05/22/21 01:27 D5-Ns 0.45% + Evert l 20 Meq IV 75 mls/hr .[id number] GINO Administration Sodium Chloride 1,000 mls @ 30 ml s/hr 05/22/21 10:00 05/22/21 10:15 Sodium Chloride 0.9% IV 05/23/21 09:59 30 mls/hr .Q24H GINO Administration Sertraline HCl 200 mg 05/22/21 09:00 05/22/21 08:12 Sertraline 100 M g Tablet PO 200 mg DAILY GINO Administration PFSH Anesthesia PFSH: Medical History (Updated 05/22/21 @ 06:55 by ARETHA Perez) Major depressive disorder, recurrent severe without psychotic features Nicotine dependence, cigarettes, uncomplicated Psychiatric care Followed at [facility] Surgical History (Updated 05/21/21 @ 23:31 by Rina Woodward MD) No pertinent past surgical history no prior surgery on 05/21/2021 Social History (Updated 05/21/21 @ 23:28 by Rina Woodward MD) Smoking and tobacco status: current every day smoker cigarettes Packs smoked per day: 1 Alcohol intake: never Substance/Drug Use: never Lives independently: Yes Number of children: 2 Female Reproductive History: : 3 Para: 2 Data Anesthesia CBC & Chem 7: 05/22/21 05:05 05/22/21 05:05 Other Labs: Laboratory Results - last 48 hr 05/21/21 05/21/21 05/21/21 21:30 21:30 21:30 WBC 18.2 H RBC 4.33 Hgb 13.0 Hct 39.7 MCV 91.7 MCH 30.0 MCHC 32.7 RDW 13.2 Plt Count 167 MPV 12.4 H Neut % (Auto) 88.8 Lymph % (Auto) 5.9 [place] % (Auto) 4.5 Eos % (Auto) 0.1 Baso % (Auto) 0.3 Neut # (Auto) 16.19 H Lymph # (Auto) 1.1 [place] # (Auto) 0.8 Eos # (Auto) 0.0 Baso # (Auto) 0.1 Nucleated RBC % (auto) 0 Nucleated RBCs # 0.0 PT 12.90 INR 0.94 Sodium 136 Potassium 3.8 Chloride 100 Carbon Dioxide 25 Anion Gap 14.8 BUN 11 Creatinine 0.6 GFR Calculation 100.0 Glucose 118 H Estimat Average Glucose Hemoglobin A1c Calculated Osmolality 282 L Calcium 9.4 Phosphorus Magnesium Total Bilirubin 0.4 AST 23 ALT 16 Alkaline Phosphatase 67 Creatine Kinase 239 H Troponin T Gen 5 ng/L NT-Pro-B Natriuret Pep Total Protein 6.8 Albumin 4.1 Globulin 2.7 Triglycerides Cholesterol LDL Cholesterol, Calc HDL Cholesterol LDL/HDL Ratio Cholesterol/HDL Ratio Urine Color Urine Appearance Urine pH Ur Specific [place] Urine Protein Urine Glucose (UA) Urine Ketones Urine Blood Urine Nitrate Urine Bilirubin Urine Urobilinogen Ur Leukocyte Esterase SARS-CoV-2 Ag (Rapid) 05/21/21 05/22/21 05/22/21 23:45 02:35 02:35 WBC RBC Hgb Hct MCV MCH MCHC RDW Plt Count MPV Neut % (Auto) Lymph % (Auto) [place] % (Auto) Eos % (Auto) Baso % (Auto) Neut # (Auto) Lymph # (Auto) [place] # (Auto) Eos # (Auto) Baso # (Auto) Nucleated RBC % (auto) Nucleated RBCs # PT INR Sodium Potassium Chloride Carbon Dioxide Anion Gap BUN Creatinine GFR Calculation Glucose Estimat Average Glucose Hemoglobin A1c Calculated Osmolality Calcium Phosphorus Magnesium Total Bilirubin AST ALT Alkaline Phosphatase Creatine Kinase Troponin T Gen 5 ng/L 9 NT-Pro-B Natriuret Pep Total Protein Albumin Globulin Triglycerides Cholesterol LDL Cholesterol, Calc HDL Cholesterol LDL/HDL Ratio Cholesterol/HDL Ratio Urine Color Yellow Urine Appearance Clear Urine pH 6 Ur Specific [place] 1.010 Urine Protein Neg Urine Glucose (UA) Norm Urine Ketones Negative Urine Blood Neg Urine Nitrate Negative Urine Bilirubin Neg Urine Urobilinogen 1 H Ur Leukocyte Esterase Negative SARS-CoV-2 Ag (Rapid) Negative 05/22/21 05/22/21 05/22/21 05:05 05:05 05:05 WBC 12.0 H RBC 3.55 L Hgb 10.9 L Hct 33.3 L MCV 93.8 MCH 30.7 MCHC 32.7 RDW 13.2 Plt Count 116 L D MPV 11.9 H Neut % (Auto) 75.5 Lymph % (Auto) 15.6 [place] % (Auto) 7.8 Eos % (Auto) 0.2 Baso % (Auto) 0.3 Neut # (Auto) 9.08 H Lymph # (Auto) 1.9 [place] # (Auto) 0.9 Eos # (Auto) 0.0 Baso # (Auto) 0.0 Nucleated RBC % (auto) 0 Nucleated RBCs # 0.0 PT INR Sodium 137 Potassium 4.1 Chloride 104 Carbon Dioxide 24 Anion Gap 13.1 BUN 10 Creatinine 0.5 GFR Calculation 123.4 Glucose 118 H Estimat Average Glucose 97 Hemoglobin A1c 5.0 Calculated Osmolality 284 L Calcium 8.1 L Phosphorus 3.5 Magnesium 1.7 Total Bilirubin AST ALT Alkaline Phosphatase Creatine Kinase Troponin T Gen 5 ng/L NT-Pro-B Natriuret Pep Total Protein Albumin Globulin Triglycerides Cholesterol LDL Cholesterol, Calc HDL Cholesterol LDL/HDL Ratio Cholesterol/HDL Ratio Urine Color Urine Appearance Urine pH Ur Specific [place] Urine Protein Urine Glucose (UA) Urine Ketones Urine Blood Urine Nitrate Urine Bilirubin Urine Urobilinogen Ur Leukocyte Esterase SARS-CoV-2 Ag (Rapid) 05/22/21 05:05 WBC RBC Hgb Hct MCV MCH MCHC RDW Plt Count MPV Neut % (Auto) Lymph % (Auto) [place] % (Auto) Eos % (Auto) Baso % (Auto) Neut # (Auto) Lymph # (Auto) [place] # (Auto) Eos # (Auto) Baso # (Auto) Nucleated RBC % (auto) Nucleated RBCs # PT INR Sodium Potassium Chloride Carbon Dioxide Anion Gap BUN Creatinine GFR Calculation Glucose Estimat Average Glucose Hemoglobin A1c Calculated Osmolality Calcium Phosphorus Magnesium Total Bilirubin AST ALT Alkaline Phosphatase Creatine Kinase 450 H* Troponin T Gen 5 ng/L NT-Pro-B Natriuret Pep 207 H Total Protein Albumin Globulin Triglycerides 74 Cholesterol 191 LDL Cholesterol, Calc 131 H HDL Cholesterol 45 L LDL/HDL Ratio 2.91 Cholesterol/HDL Ratio 4.24 Urine Color Urine Appearance Urine pH Ur Specific [place] Urine Protein Urine Glucose (UA) Urine Ketones Urine Blood Urine Nitrate Urine Bilirubin Urine Urobilinogen Ur Leukocyte Esterase SARS-CoV-2 Ag (Rapid) Cardiac Studies: No Data to Display
--- NOTE | 2021-05-22 11:37 | PM.PACU ---
PACU note PACU note: VSS, Good respiratory effort, report to SLAT BASKET MAKER Post-Anesthesia Exam: awake
--- NOTE | 2021-05-22 11:37 | P.PCN_ITS ---
PACU note PACU note: VSS, Good respiratory effort, report to SHAREPOINT MANAGER Post-Anesthesia Exam: awake
--- NOTE | 2021-05-22 11:38 | PM.OP ---
Operative Report Date of procedure: May 22, 2021 Pre-op Diagnosis: left Intertrochanteric femur fracture Post-op diagnosis: same Procedure Done: 1. Right intra medullary hip nail Surgeon: Obdulio Bryson Metal Trades Instructor: Ty Lerma Metal Trades Instructor: Ty CARIAS helped with positioning the patient. He is required to help to reduce fracture. And to help with placing the nail. P helped close the wound as well. Anesthesia: General Estimated blood loss (mL): 10 Condition: stable Disposition: PACU Procedure: 1. Right intra medullary hip Patient was brought to the operative suite placed in the supine position on the fracture table after undergoing anesthesia. Traction was applied and internally rotated. AP lateral fluoroscopy ensured the fracture was reduced. The skin incision made proximal to the greater trochanter. The starting pin was inserted opening was inserted. The nail was then inserted. The guidewire was then inserted through the nail into the center center position in the head. A 90 mm lag screw was placed and compressed 5 mm. The locking bolt was locked approximately. And then a locking screws placed distally. Through the nail in static mode. AP lateral fluoroscopy ensured that the fracture and hardware improved position. Wounds were irrigated and closed with Vicryl and susanna. Sterile dressings applied patient transferred to the PACU in stable condition.
--- NOTE | 2021-05-22 11:49 | SUR.PHASEI ---
PT NOW ON 3 LNC SATS MAINTAINED AT 95% PT SLEEPS IF NOT DISTURBED NO S/S OF PAIN , RT HIP DRESSING D/I FOOT PUMP TO RT FOOT , DISTAL TOES PINK AND WARM BREWER TO DD WITH YELLOW URINE IN TUBING AND BAG, TAPED TO LT THIGH,
--- NOTE | 2021-05-22 12:33 | ANE.PACU2 ---
Inpatient post-anesthesia follow up: Airway intact: Yes Vital signs: Temperature 99 F Pulse Rate [Monito r] 86 Pulse Rate 85 Respiratory Rate 17 Blood Pressure [Ri ght Arm] 105/61 Blood Pressure 103/61 Pulse Oximetry 97 Oxygen Delivery Me thod Room Air Oxygen Flow Rate 3 Fraction of Inspir ed Oxygen Hydration adequate: Yes Nausea and vomiting: No Pain level: 2 Mental status: Baseline
--- NOTE | 2021-05-22 13:45 | PC.OT ---
Attempted occupational therapy evaluation. Due to how recency of patient surgery, Patient was able to answer small questions but unable to comply with OT instructions and refused to complete any task. Plan to eval following day.
--- NOTE | 2021-05-22 13:48 | XR_ITS ---
WS: [id number] Exam: XR hip RT 2-3V wo/w pel* [id number] Date/Time of Exam: 05/22/2021 1:48 PM Reason For Exam: OR PICS There is internal orthopedic fixation involving an intertrochanteric fracture of the right hip. An in tramedullary henok and femoral neck screw stabilize a fracture in satisfactory alignment for healing. XR/XR hip RT 2-3V wo/w pel* [id number] IMPRESSION: 1. Satisfactory ORIF of an intertrochanteric fracture of the right hip.
--- NOTE | 2021-05-22 14:58 | PM.PN ---
Subjective Subjective: Interval history: No acute events overnight. S/p Right intra medullary hip nail Medications: Reviewed: Yes Vitals/I&O/Wt Last Vital Signs Temp 99 F 05/22/21 12:00 Pulse 79 05/22/21 14:54 Resp 18 05/22/21 14:54 BP 103/61 05/22/21 12:00 Pulse Ox 94 05/22/21 14:54 05/21/21 05/22/21 05/22/21 22:59 06:59 14:59 Intake Total 153.5 / 153.5 Output Total 500 / 500 610 / 610 Balance -500 / -500 -456.5 / -456.5 Weight last 48 hrs Weight 50.916 kg Weight 49.895 kg Physical Exam Const: COMMON NORMALS: patient oriented x3 HENMT: COMMON NORMALS: normocephalic and atraumatic HEAD & SCALP: normocephalic and atraumatic Resp: COMMON NORMALS: clear to auscultation bilaterally EFFORT & INSPECTION: Yes symmetric chest movement AUSCULTATION: clear to auscultation bilaterally Cardio: COMMON NORMALS: regular rate, regular rhythm, S1 normal heart sound present, S2 normal heart sound present, No gallops present (Cardio), No murmurs present (Cardio), No rub (Cardio) and Peripheral pulses 2+ throughout RATE: regular rate RHYTHM: regular rhythm HEART SOUNDS: S1 normal heart sound present and S2 normal heart sound present PERIPHERAL PULSES: Peripheral pulses 2+ throughout GI: COMMON NORMALS: Normal to inspection, nondistended, normoactive bowel sounds present, Soft to palpation, non-tender, No hepatosplenomegaly present and no masses AUSCULTATION: Yes normoactive bowel sounds PALPATION: Yes Soft to palpation and Yes No hepatosplenomegaly present RECTAL EXAM: deferred Extremity: COMMON NORMALS: no clubbing, cyanosis or edema and no pedal edema Neuro: COMMON NORMALS: patient oriented x3 Urinary Catheter Management^: Barroso: Cath Placed During This Visit: yes Reason for Continuing Indwelling Catheter: Required Immobilization for Trauma or Surgery or Anesthesia Urinary Catheter Date of Insertion: 05/22/21 Urinary Catheter Time of Insertion: 02:30 Data : 05/22/21 05:05 05/22/21 05:05 A&P Assessment and plan (1) Accidental fall from chair: Status: Acute Qualifiers: Encounter type: initial encounter Qualified Code(s): W07.XXXA - Fall from chair, initial encounter (2) Closed intertrochanteric fracture of right femur: Status: Acute Qualifiers: Encounter type: initial encounter Fracture alignment: nondisplaced Qualified Code(s): S72.144A - Nondisplaced intertrochanteric fracture of right femur, initial encounter for closed fracture (3) Dyspnea on exertion: Present for some time but has been progressively worsening over the last few months, improves with rest or sometimes an inhaler that she borrowed from her daughter, no associated chest pain, orthopnea or PND nor lower extremity edema. She does have a family history of a brother that from cardiac arrest and had bypass surgery in his early 70s and a daughter that has known coronary artery disease (with a father without known history of coronary artery disease) Status: Acute (4) Nicotine dependence, cigarettes, uncomplicated: Historically uncomplicated as she does not go to the doctor. I suspect, however, that she is describing development of COPD over time. Status: Chronic (5) Major depressive disorder, recurrent severe without psychotic features: Chronically on sertraline and Ambien Status: Chronic Additional A&P Information CK elevation Leukocytosis and hyperglycemia, both suspected to be reactive in nature Inpatient admission Low volume IV fluids, recheck CK and renal function in the morning Will check baseline troponin and BNP Given escalation of dyspnea on exertion described lately and family history of coronary artery disease will get echocardiogram in the morning. EKG without any acute ST segment changes. Denies episodes of chest pain with dyspnea. Pending results of above, tentative plan for surgical intervention tomorrow versus need to further evaluate Check lipid panel and A1c for risk stratification Orthopedics has been paged, consult order placed for surgical intervention As needed breathing treatments, monitoring for definitive COPD symptoms Incentive spirometer Nicotine patch if needed Continue home sertraline Continue home Ambien but changed to as needed Pain control Barroso catheter placement perioperatively Check urinalysis SCDs for DVT prophylaxis; no pharmacological DVT prophylaxis currently secondary to potential surgery tomorrow Covid testing pre-op and pre-possible SNF - discussed with patient Pepcid for GI prophylaxis Reviewed with patient the importance of establishing care with a primary care provider on at least an annual basis. We also discussed importance of flu and pneumonia vaccines. She has not had a Covid vaccine. She is not up-to-date with screening recommendations such as mammography or colonoscopy and the like. Suggested a few providers to consider that would be convenient for her. Discussed with patient briefly the importance of smoking cessation in regards to her overall health, in particular cardiac health (less than 5 minutes) In terms of disposition, patient does have a support system with her children, one of whom has been a caregiver, and would probably like to go home with home health care services if she does okay postoperatively. We also talked about the option of skilled placement for rehabilitation. Supportive care otherwise Findings, concerns and plans were discussed with patient and her children with her permission and all were given an opportunity to ask questions. 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
[2021-05-22 15:00] LABS: Coronavirus Test Green County Not Detected
[2021-05-22] MEDS: ceFAZolin 1,000 MG in sodium chloride 0.9% (plus) 50 ML 100 MG IV (17:19)
[2021-05-22] MEDS: sodium chloride 0.9% 1,000 ML 100 ML IV (17:19)
--- NOTE | 2021-05-22 17:53 | PC.PT ---
Patient declines physical therapy today, states she will participate in the morning
[2021-05-22] MEDS: zolpidem 5 mg Tablet PO (20:22)
[2021-05-22] MEDS: sennosides 8.6 mg Tablet 17.2 MG PO (20:22)
[2021-05-23] VITALS (7 sets, daily range): BP systolic 91–109; BP diastolic 48–64; PULSE 68–78; RESP 16–18; TEMP 36.7–37.4; O2SAT 90–97
[2021-05-23] MEDS: enoxaparin 40 mg/0.4 mL Syringe SUBCUT (01:09)
[2021-05-23] MEDS: sodium chloride 0.9% 1,000 ML 100 ML IV ×2 (01:10→10:40)
[2021-05-23] MEDS: ceFAZolin 1,000 MG in sodium chloride 0.9% (plus) 50 ML 100 MG IV ×2 (01:10→10:35)
[2021-05-23] MEDS: HYDROcodone-acetaminophen 5-325 mg Tablet 1 TAB PO ×5 (01:27→22:31)
[2021-05-23 05:18] LABS: Basophils % 0.2 %; Eosinophils # 0.1 10^3/uL (0.0-0.8); Eosinophils % 0.7 %; Hematocrit 29.5 % (37.0-47.0); Hemoglobin 9.6 g/dL (11.5-15.3); Lymphocytes # 1.2 10^3/uL (0.8-4.8); Lymphocytes % 13.9 %; Mean Corpuscular HGB Conc 32.5 g/dL (30.0-36.0); Mean Corpuscular Hemoglobin 31.1 pg (28.0-34.0); Mean Corpuscular Volume 95.5 fl (81-99); Mean Platelet Volume 12.2 fL (7.4-10.4); Monocytes # 0.6 10^3/uL (0.2-0.9); Neutrophils # 6.96 10^3/uL (1.8-7.7); Neutrophils % 77.9 %; Nucleated Red Blood Cells % 0 %; Platelet Count 92 10^3/cmm (130-400); Red Blood Count 3.09 10^6/uL (4.1-5.3); Red Cell Distribution Width 13.3 % (12.1-15.1); White Blood Count 8.9 10^3/uL (4.0-10.0)
[2021-05-23 05:42] LABS: Anion Gap 9.6 (5-19); Blood Urea Nitrogen 7 mg/dL (8-23); Calcium 7.8 mg/dL (8.5-10.5); Carbon Dioxide 25 mmol/L (22-29); Chloride 105 mmol/L (98-107); Glomerular Filtration Rate 123.4 mL/min (90-130); Glucose 109 mg/dL (65-115); Osmolality Calculated 281 mOsm/kg (285-295); Potassium 3.6 mmol/L (3.5-5.1); Sodium 136 mmol/L (136-145)
[2021-05-23 06:01] LABS: Creatine Phosphokinase 387 U/L (26-192)
--- NOTE | 2021-05-23 07:06 | PM.PN ---
Documented by User: ARETHA Perez 05/23/21 07:09 Subjective Subjective: Interval history: POD 1 following Right hip ORIF with IM nail Patient resting comfortably denies any pain or pain in her right wrist this morning. Denies any shortness of breath or chest pain. Vitals/I&O/Wt Last Vital Signs Temp 99.3 F 05/23/21 04:00 Pulse 75 05/23/21 04:00 Resp 16 05/23/21 04:00 BP 94/56 05/23/21 04:00 Pulse Ox 94 05/23/21 04:00 05/22/21 05/23/21 05/23/21 22:59 06:59 14:59 Intake Total 1050 / 1203.5 835 / 2038.5 Output Total 800 / 1410 Balance 1050 / 593.5 35 / 628.5 Weight last 48 hrs Weight 112 lb 4 oz Weight 110 lb Physical Exam Narrative: EXAM NARRATIVE: She is alert oriented x3 has good general appearance normal normal affect. Incision over the right hip is clean and dry. She is wiggling all toes dorsiflexing and plantar flexing both feet. Pulses are palpable normal station light touch. She has no palpable pain this morning over her right wrist making a fist she can supinate and pronate without any problem. She can flex and extend the thumb without any problems. Urinary Catheter Management^: Barroso: Cath Placed During This Visit: yes, but has since been removed by the nurse Reason for Continuing Indwelling Catheter: Acute Urinary Retention or Obstruction Urinary Catheter Date of Insertion: 05/22/21 Urinary Catheter Time of Insertion: 02:30 Date Urinary Catheter Removed: 05/23/21 Time Urinary Catheter Discontinued: 06:05 Data : 05/23/21 04:58 05/23/21 04:58 A&P Assessment and plan (1) Closed intertrochanteric fracture of right femur: Physical therapy to evaluate with partial weightbearing to the right lower extremity. She will need a walker for mobilizing. From orthopedic standpoint is okay to discharge when medically stable. We will see her back in the office in 1 week's time for incisional evaluation. We will remove the susanna in 12 to 14 days. Status: Acute Qualifiers: Encounter type: initial encounter Fracture alignment: nondisplaced Qualified Code(s): S72.144A - Nondisplaced intertrochanteric fracture of right femur, initial encounter for closed fracture Attestations Medical Necessity Statement*: Defer to medical team Coding Level of Care Code Acute Cutting Machine Tender Decorative for [facility] Diagnoses Closed intertrochanteric fracture of right femur S72.144A Encounter type: initial encounter Fracture alignment: nondisplaced Documented by User: Obdulio Bryson DO 05/23/21 10:44 Physical Exam Urinary Catheter Management^: Barroso: Cath Placed During This Visit: no Data : 05/23/21 04:58 05/23/21 04:58 A&P Assessment and plan (1) Closed intertrochanteric fracture of right femur: agree with above pt seen WBAT Status: Acute Qualifiers: Encounter type: initial encounter Fracture alignment: nondisplaced Qualified Code(s): S72.144A - Nondisplaced intertrochanteric fracture of right femur, initial encounter for closed fracture Coding Level of Care Code Acute Cutting Machine Tender Dec[employer] for [facility] Diagnoses Closed intertrochanteric fracture of right femur S72.144A Encounter type: initial encounter Fracture alignment: nondisplaced
[2021-05-23] MEDS: sertraline 100 mg Tablet 200 MG PO (10:36)
[2021-05-23] MEDS: famotidine 20 mg Tablet PO ×2 (10:36→18:02)
[2021-05-23] MEDS: docusate sodium 100 mg Capsule PO (10:37)
[2021-05-23] MEDS: sodium chloride 0.9% 1,000 ML 75 ML IV (18:03)
--- NOTE | 2021-05-23 20:05 | PM.PN ---
Subjective Subjective: Interval history: S/P Right hip ORIF with IM nail. Pain is well controlled. Resting comfortably in bed. Denies any shortness of breath or chest pain. Medications: Reviewed: Yes Vitals/I&O/Wt Last Vital Signs Temp 98.0 F 05/23/21 15:05 Pulse 68 05/23/21 15:05 Resp 16 05/23/21 15:05 BP 109/64 05/23/21 15:05 Pulse Ox 90 05/23/21 15:05 05/23/21 05/23/21 05/23/21 06:59 14:59 22:59 Intake Total 835 / 2038.5 1000 / 1000 682.083 / 1682.083 Output Total 800 / 1410 Balance 35 / 628.5 1000 / 1000 682.083 / 1682.083 Weight last 48 hrs Weight 50.916 kg Weight 49.895 kg Physical Exam Const: COMMON NORMALS: patient oriented x3 HENMT: COMMON NORMALS: normocephalic and atraumatic HEAD & SCALP: normocephalic and atraumatic Resp: COMMON NORMALS: clear to auscultation bilaterally EFFORT & INSPECTION: Yes symmetric chest movement AUSCULTATION: clear to auscultation bilaterally Cardio: COMMON NORMALS: regular rate, regular rhythm, S1 normal heart sound present, S2 normal heart sound present, No gallops present (Cardio), No murmurs present (Cardio), No rub (Cardio) and Peripheral pulses 2+ throughout RATE: regular rate RHYTHM: regular rhythm HEART SOUNDS: S1 normal heart sound present and S2 normal heart sound present PERIPHERAL PULSES: Peripheral pulses 2+ throughout GI: COMMON NORMALS: Normal to inspection, nondistended, normoactive bowel sounds present, Soft to palpation, non-tender, No hepatosplenomegaly present and no masses AUSCULTATION: Yes normoactive bowel sounds PALPATION: Yes Soft to palpation and Yes No hepatosplenomegaly present RECTAL EXAM: deferred Extremity: COMMON NORMALS: no clubbing, cyanosis or edema and no pedal edema Neuro: COMMON NORMALS: patient oriented x3 Urinary Catheter Management^: Barroso: Cath Placed During This Visit: yes, but has since been removed by the nurse Reason for Continuing Indwelling Catheter: Acute Urinary Retention or Obstruction Urinary Catheter Date of Insertion: 05/22/21 Urinary Catheter Time of Insertion: 02:30 Date Urinary Catheter Removed: 05/23/21 Time Urinary Catheter Discontinued: 06:05 Data : 05/23/21 04:58 05/23/21 04:58 A&P Assessment and plan (1) Accidental fall from chair: Status: Acute Qualifiers: Encounter type: initial encounter Qualified Code(s): W07.XXXA - Fall from chair, initial encounter (2) Closed intertrochanteric fracture of right femur: Status: Acute Qualifiers: Encounter type: initial encounter Fracture alignment: nondisplaced Qualified Code(s): S72.144A - Nondisplaced intertrochanteric fracture of right femur, initial encounter for closed fracture (3) Dyspnea on exertion: Present for some time but has been progressively worsening over the last few months, improves with rest or sometimes an inhaler that she borrowed from her daughter, no associated chest pain, orthopnea or PND nor lower extremity edema. She does have a family history of a brother that from cardiac arrest and had bypass surgery in his early 70s and a daughter that has known coronary artery disease (with a father without known history of coronary artery disease) Status: Acute (4) Nicotine dependence, cigarettes, uncomplicated: Historically uncomplicated as she does not go to the doctor. I suspect, however, that she is describing development of COPD over time. Status: Chronic (5) Major depressive disorder, recurrent severe without psychotic features: Chronically on sertraline and Ambien Status: Chronic Additional A&P Information CK elevation Leukocytosis and hyperglycemia, both suspected to be reactive in nature Inpatient admission Low volume IV fluids, recheck CK and renal function in the morning Will check baseline troponin and BNP Given escalation of dyspnea on exertion described lately and family history of coronary artery disease will get echocardiogram in the morning. EKG without any acute ST segment changes. Denies episodes of chest pain with dyspnea. Pending results of above, tentative plan for surgical intervention tomorrow versus need to further evaluate Check lipid panel and A1c for risk stratification Orthopedics has been paged, consult order placed for surgical intervention As needed breathing treatments, monitoring for definitive COPD symptoms Incentive spirometer Nicotine patch if needed Continue home sertraline Continue home Ambien but changed to as needed Pain control Barroso catheter placement perioperatively Check urinalysis SCDs for DVT prophylaxis; no pharmacological DVT prophylaxis currently secondary to potential surgery tomorrow Covid testing pre-op and pre-possible SNF - discussed with patient Pepcid for GI prophylaxis Reviewed with patient the importance of establishing care with a primary care provider on at least an annual basis. We also discussed importance of flu and pneumonia vaccines. She has not had a Covid vaccine. She is not up-to-date with screening recommendations such as mammography or colonoscopy and the like. Suggested a few providers to consider that would be convenient for her. Discussed with patient briefly the importance of smoking cessation in regards to her overall health, in particular cardiac health (less than 5 minutes) In terms of disposition, patient does have a support system with her children, one of whom has been a caregiver, and would probably like to go home with home health care services if she does okay postoperatively. We also talked about the option of skilled placement for rehabilitation. Supportive care otherwise Findings, concerns and plans were discussed with patient and her children with her permission and all were given an opportunity to ask questions. Full code Attestations Medical Necessity Statement*: Patient needs to be in hospital for rhabdomyolysis, need for I.V fluids, S/P Right hip ORIF. Anticipated Discharge in am Coding Level of Care Code Acute Career Services Manager for [facility] Fwd Diagnoses Accidental fall from chair W07.XXXA Encounter type: initial encounter Closed intertrochanteric fracture of right femur S72.144A Encounter type: initial encounter Fracture alignment: nondisplaced Dyspnea on exertion R06.00 Nicotine dependence, cigarettes, uncomplicated F17.210 Major depressive disorder, recurrent severe without psychotic features F33.2
[2021-05-23] MEDS: zolpidem 5 mg Tablet PO (22:34)
[2021-05-24] VITALS (7 sets, daily range): BP systolic 95–110; BP diastolic 59–73; PULSE 70–77; RESP 16–18; TEMP 37.1; O2SAT 86–97
[2021-05-24] MEDS: enoxaparin 40 mg/0.4 mL Syringe SUBCUT (01:16)
[2021-05-24] MEDS: sodium chloride 0.9% 1,000 ML 75 ML IV (05:08)
[2021-05-24 06:58] LABS: Basophils % 0.5 %; Eosinophils # 0.1 10^3/uL (0.0-0.8); Eosinophils % 1.4 %; Hematocrit 25.5 % (37.0-47.0); Hemoglobin 8.4 g/dL (11.5-15.3); Lymphocytes # 1.1 10^3/uL (0.8-4.8); Lymphocytes % 12.7 %; Mean Corpuscular HGB Conc 32.9 g/dL (30.0-36.0); Mean Corpuscular Hemoglobin 30.5 pg (28.0-34.0); Mean Corpuscular Volume 92.7 fl (81-99); Mean Platelet Volume 12.2 fL (7.4-10.4); Monocytes # 0.6 10^3/uL (0.2-0.9); Monocytes % 7.2 %; Neutrophils # 6.83 10^3/uL (1.8-7.7); Neutrophils % 77.6 %; Nucleated Red Blood Cells % 0 %; Platelet Count 104 10^3/cmm (130-400); Red Blood Count 2.75 10^6/uL (4.1-5.3); White Blood Count 8.8 10^3/uL (4.0-10.0)
[2021-05-24 07:10] LABS: Anion Gap 8.5 (5-19); Blood Urea Nitrogen 6 mg/dL (8-23); Calcium 7.8 mg/dL (8.5-10.5); Carbon Dioxide 27 mmol/L (22-29); Chloride 107 mmol/L (98-107); Creatine Phosphokinase 229 U/L (26-192); Glomerular Filtration Rate 159.7 mL/min (90-130); Glucose 100 mg/dL (65-115); Osmolality Calculated 286 mOsm/kg (285-295); Potassium 3.5 mmol/L (3.5-5.1); Sodium 139 mmol/L (136-145)
--- NOTE | 2021-05-24 07:24 | PC.SOCIAL ---
IMM Update Pg. 2 of IMM updated and reviewed with patient, who verbalized understanding. Copy provided.
--- NOTE | 2021-05-24 07:28 | P.PN_ITS ---
Subjective Subjective: Interval history: POD 2 Patient resting comfortably. Does report some mild right hip pain. She was up with physical therapy yesterday. Vitals/I&O/Wt Last Vital Signs Temp 98.8 F 05/24/21 04:00 Pulse 77 05/24/21 04:00 Resp 18 05/24/21 04:00 BP 95/59 05/24/21 04:00 Pulse Ox 93 05/24/21 04:00 05/23/21 05/24/21 05/24/21 22:59 06:59 14:59 Intake Total 1162.083 / 2162.083 1071.25 / 3233.333 Output Total 400 / 400 200 / 600 Balance 762.083 / 1762.083 871.25 / 2633.333 Physical Exam Narrative: EXAM NARRATIVE: She is alert oriented x3 she has good general appearance from normal affect. Wiggles all toes dorsiflex and plantarflex her feet. Incision is clean and dry. Calves are supple no medial thigh tenderness. Urinary Catheter Management^: Barroso: Cath Placed During This Visit: yes, but has since been removed by the nurse Reason for Continuing Indwelling Catheter: Acute Urinary Retention or Obstruction Urinary Catheter Date of Insertion: 05/22/21 Urinary Catheter Time of Insertion: 02:30 Date Urinary Catheter Removed: 05/23/21 Time Urinary Catheter Discontinued: 06:05 Data : 05/24/21 06:25 05/24/21 06:25 A&P Assessment and plan (1) Closed intertrochanteric fracture of right femur: Please change right hip dressing. Okay from orthopedic standpoint for discharge home when medically stable. We will see her back in the office in 2 weeks time for staple removal. She can remain weightbearing as tolerated to the right lower extremity. Status: Acute Qualifiers: Encounter type: initial encounter Fracture alignment: nondisplaced Qualified Code(s): S72.144A - Nondisplaced intertrochanteric fracture of right f emumu, initial encounter for closed fracture Attestations Medical Necessity Statement*: defer to medical team Coding Level of Care Code Acute Top Stop Attacher for [facility] Diagnoses Closed intertrochanteric fracture of right femur S72.144A Encounter type: initial encounter Fracture alignment: nondisplaced
[2021-05-24] MEDS: sertraline 100 mg Tablet 200 MG PO (07:57)
[2021-05-24] MEDS: docusate sodium 100 mg Capsule PO (07:58)
[2021-05-24] MEDS: famotidine 20 mg Tablet PO (07:58)
[2021-05-24] MEDS: HYDROcodone-acetaminophen 5-325 mg Tablet 1 TAB PO (08:04)
--- NOTE | 2021-05-24 10:10 | PM.DCS ---
Discharge Providers Date of Admission: 05/21/21 22:17 Date of Discharge: May 24, 2021 Attending Provider at Admission: Rina Woodward MD Attending Provider at Discharge: Rina Woodward MD Primary Care Provider: SKYLAR Landis Diagnoses at Discharge Discharge Diagnosis (1) Closed intertrochanteric fracture of right femur: Status: Acute Qualifiers: Encounter type: initial encounter Fracture alignment: nondisplaced Qualified Code(s): S72.144A - Nondisplaced intertrochanteric fracture of right femur, initial encounter for closed fracture Reason for Visit Reason for Visit: FALL/HIP PAIN Hospital Course Hospital Course 65-year-old female with a past medical history of Major depressive disorder, recurrent severe without psychotic features, chronic smoking, was admitted after experiencing a accidental fall from chair at home, further work-up revealed Closed intertrochanteric fracture of right femur S/P Right hip ORIF with IM nail. She was also complaining of worsening dyspnea on exertion for last few months, which improves with rest as well as albuterol inhaler, she denied any chest pain, palpitation, orthopnea , PND. X-ray chest done during the hospital stay: Failed to show any significant findings, showed Mild hyperinflation. 2D echo: Normal LV cavity size normal LV systolic function, LVEF 63%, grade 2 diastolic dysfunction, normal right ventricular systolic function, no RWMA , Moderately thickened mitral valve. No mitral valve stenosis.Trace mitral valve regurgitation. Moderate aortic valve calcification. No aortic valve stenosis.Trace aortic valve regurgitation. Shortness of breath is possibly secondary to COPD, due to longstanding smoking history. At the time of discharge she qualified for 3 L home oxygen with exertion. Patient overall responded well to the medical and orthopedic management. She is being discharged in stable condition to home. She will find a primary care physician and will follow up with. Physical Exam Const: COMMON NORMALS: patient oriented x3 HENMT: COMMON NORMALS: normocephalic and atraumatic HEAD & SCALP: normocephalic and atraumatic Resp: COMMON NORMALS: clear to auscultation bilaterally EFFORT & INSPECTION: Yes symmetric chest movement AUSCULTATION: clear to auscultation bilaterally Cardio: COMMON NORMALS: regular rate, regular rhythm, S1 normal heart sound present, S2 normal heart sound present, No gallops present (Cardio), No murmurs present (Cardio), No rub (Cardio) and Peripheral pulses 2+ throughout RATE: regular rate RHYTHM: regular rhythm HEART SOUNDS: S1 normal heart sound present and S2 normal heart sound present PERIPHERAL PULSES: Peripheral pulses 2+ throughout GI: COMMON NORMALS: Normal to inspection, nondistended, normoactive bowel sounds present, Soft to palpation, non-tender, No hepatosplenomegaly present and no masses AUSCULTATION: Yes normoactive bowel sounds PALPATION: Yes Soft to palpation and Yes No hepatosplenomegaly present RECTAL EXAM: deferred Extremity: COMMON NORMALS: no clubbing, cyanosis or edema and no pedal edema Neuro: COMMON NORMALS: patient oriented x3 Urinary Catheter Management^: Barroso: Cath Placed During This Visit: yes, but has since been removed by the nurse Reason for Continuing Indwelling Catheter: Acute Urinary Retention or Obstruction Urinary Catheter Date of Insertion: 05/22/21 Urinary Catheter Time of Insertion: 02:30 Date Urinary Catheter Removed: 05/23/21 Time Urinary Catheter Discontinued: 06:05 Discharge Data Data Completed and Pending: Completed Studies During Hospitalization Category Date Time Status XR chest 1V mike ble [id number] Urgent Exams 05/21/21 22:12 Completed XR hip RT 2-3V wo /w pel* [id number] Rout ine Exams 05/22/21 13:48 Completed XR hip RT 2-3V wo /w pel* [id number] Stat Exams 05/21/21 21:42 Completed Pending at discharge Category Date Time Status C-arm Fluoroscopy [id number] Routine Exams 05/22/21 09:38 Taken CV. echo complete * [id number] Routine Ultrasound 05/22/21 00:11 Taken Labs from last 24 hours 05/24/21 05/24/21 06:25 06:25 WBC 8.8 RBC 2.75 L Hgb 8.4 L Hct 25.5 L MCV 92.7 MCH 30.5 MCHC 32.9 RDW 13.0 Plt Count 104 L MPV 12.2 H Neut % (Auto) 77.6 Lymph % (Auto) 12.7 [place] % (Auto) 7.2 Eos % (Auto) 1.4 Baso % (Auto) 0.5 Neut # (Auto) 6.83 Lymph # (Auto) 1.1 [place] # (Auto) 0.6 Eos # (Auto) 0.1 Baso # (Auto) 0.0 Nucleated RBC % (a uto) 0 Nucleated RBCs # 0.0 Sodium 139 Potassium 3.5 Chloride 107 Carbon Dioxide 27 Anion Gap 8.5 BUN 6 L Creatinine 0.4 L GFR Calculation 159.7 H Glucose 100 Calculated Osmolal ity 286 Calcium 7.8 L Creatine Kinase 229 H Vitals: Last Vital Signs Temp 98.7 F 05/24/21 08:00 Pulse 75 05/24/21 08:43 Resp 16 05/24/21 08:43 BP 103/60 05/24/21 08:00 Pulse Ox 97 05/24/21 08:43 Discharge Plan Discharge Patient Disposition: Home Condition: Stable Prescriptions: New Percocet 5-325 mg tablet 1 tab PO Q6H PRN (Reason: pain) 7 Days Qty: 25 RF: 0 Continued Ambien 5 mg tablet 5 mg PO BEDTIME Qty: 30 RF: 2 sertraline 100 mg tablet 200 mg PO DAILY Qty: 60 RF: 2 albuterol sulfate 90 mcg/actuation HFA aerosol inhaler 2 inh INHALATION Q4H PRN (Reason: shortness of breath or wheezing) Qty: 18 RF: 0 acetaminophen 325 mg Tablet 6,650 mg PO QID PRN (Reason: Pain) RF: 0 Discharge Orders: Discharge Order (Routine); Ordered 05/24/21 Ordered By: Olman Clark Other Ambulatory Orders: DME: Oxygen (Order) Location: None Selected Ordered By: Olman Clark DME: Walker (Order) Location: None Selected Ordered By: Olman Clark Referrals: [facility] [Outside] Flower Blackburn FNP [Primary Care Provider] - (Please call your primary care provider and schedule an appointment to be seen within the next week. ) Discharge Diet: Regular Discharge Activity: Increase activity as tolerated Patient Instructions: Oxycodone/Acetaminophen (By mouth), Hip Fracture (GEN), Opioid Safety Activity Restrictions/Additional Instructions: You are being discharged from the hospital today during which time you have been under the care of Dr Bryson. You had a Left Inter trochanteric hip fracture fracture. You were treated for this injury with a Left hip Nail. You may resume you normal diet (including any special diets as directed by your primary doctor) as well as your home medications. You should follow up with you primary doctor if you have any questions regarding medication you took prior to your stay in the hospital. You may take your pain medication as prescribed. After the first few days, take your pain medication as needed. Do not drive or drink alcohol while taking your pain medication. Your injury may increase your risk of developing a blood clot,or DVT, in your arm or leg. This could potentially dislodge and travel to your lungs and become a life threatening condition called apulmonary embolus,or PE. You have been prescribed Lovenox or full strength ASA to be taken to prevent this. Frequent movement of the feet will also help prevent this from occurring. If you develop any new or worsening cough, chestpain, bloody sputum or shortness of breath, call 911 or go to the EmergencyRoom. Always keep your surgical incision/dressing clean and dry. If you experience increasing pain at your incision site, redness, swelling, increasing discharge, foul odors, or fevers (greater than 100.4), night sweats or chills you should call the office at the above number. If you feel this is an emergency you should be evaluated in the Emergency Department of a nearby hospital. Orthopedic Patient Instructions Summary: Weight Bearing: WBAT Activity: As tolerated. Diet: regular. Wound Care: Keep dressing clean and dry. Change as neded Anticoagulation: lovenox or ASA for 30 days Pain Medication: Take only as needed. Ice, rest and elevation will be of great benefit. Please plan to follow-up wlcatina Bryson in 2 weeks. You will need to call the clinic [phone] to schedule this visit. Thank you far allowing me to participate in your care. Do not hesitate to call the office with any questions or concerns. Discharge Attestations Time Spent in Discharge Care*: less than 30 min Specific Discharge Activities: educating patient, educating and/or supporting family/caregiver, discussing with pcp/other providers, discussing with case management assistant/social workers/dc planners, documenting/other paperwork and evaluating patient/reviewing data Quality Metrics Clinical Quality Measures During this hospital stay, did patient experience: None Coding Level of Care Code Acute [facility] TJ note Diagnoses Closed intertrochanteric fracture of right femur S72.144A Encounter type: initial encounter Fracture alignment: nondisplaced
--- NOTE | 2021-05-25 15:05 | PC.RESP ---
SMOKING CESSATION INFORMATION SENT TO PATIENT.
== END 2021-05-24 14:28 | disposition home or self-care (01) | DRG 481 ==
LOC: ER 22:33 → MEDSURG 22:46
PROVIDERS: Internal Medicine; Orthopaedic Surgery; Admitting Provider Hospitalist; Emergency Provider Emergency Medicine; PCP Nurse Practitioner; Visit Provider Hospitalist
PROC: 0QS606Z Reposition Right Upper Femur with Intramedullary Internal Fixation Device, Open Approach (ICD-10-PCS; CPT 27245; principal; 2021-05-22 11:10)
DX: S72.144A Nondisplaced intertrochanteric fracture of right femur, initial encounter for closed fracture (principal); F33.9 Major depressive disorder, recurrent, unspecified; M62.82 Rhabdomyolysis; W07.XXXA Fall from chair, initial encounter; F17.210 Nicotine dependence, cigarettes, uncomplicated; Z82.49 Family history of ischemic heart disease and other diseases of the circulatory system; M25.531 Pain in right wrist; J44.9 Chronic obstructive pulmonary disease, unspecified; Z79.51 Long term (current) use of inhaled steroids
CPT/HCPCS: 36415; 51702; 71045; 73502; 76000; 80048; 80053; 80061; 81003; 82550; 83036; 83735; 83880; 84100; 84484; 85025; 85610; 87426; 87635; 93005; 93306; 96365; 96367; 96372; 97116; 97161; 97166; 97530; 97535; 99285; C1713; J0690; J1170; J1650; J2704; J3010; J7030

== ENCOUNTER → 2021-07-02 14:12 | Outpatient (BNVA) | payer MEDICARE, MEDICAID, SELFPAY | PROVIDERS: PCP Nurse Practitioner; Visit Provider Orthopaedic Surgery | DX: Z48.89 Encounter for other specified surgical aftercare (principal) | CPT/HCPCS: 73502 ==

== ENCOUNTER → 2021-08-06 15:25 | Outpatient (BNVA) | payer MEDICARE, MEDICAID, SELFPAY | PROVIDERS: PCP Nurse Practitioner; Visit Provider Orthopaedic Surgery | DX: Z47.89 Encounter for other orthopedic aftercare (principal); S72.141D Displaced intertrochanteric fracture of right femur, subsequent encounter for closed fracture with routine healing; X58.XXXD Exposure to other specified factors, subsequent encounter | CPT/HCPCS: 73502 ==

== ENCOUNTER 2022-11-30 22:43 | Emergency (ER) | payer MEDICARE, MEDICAID, SELFPAY ==
[2022-11-30 22:44] VITALS: BP 118/75; PULSE 99; RESP 16; TEMP 36.7; O2SAT 91
--- NOTE | 2022-11-30 22:55 | ED_ITS ---
HPI - General Adult General: Chief complaint: General Medical Stated complaint: sore throat Time Seen by Provider: 11/30/22 22:55 History of Present Illness: 67-year-old female comes in today with complaints of sore throat. Patient's had a sore throat since last week. Patient has had increasing difficulty with swallowing and having hard time with managing fluids. Patient appears nontoxic. Patient appears in mild to moderate pain. Respirations are even. Associated symptoms: Deny chest pain, dyspnea, rash or vomiting Review of Systems General: Reports: 10 or more systems reviewed and unremarkable except in HPI and below Const: Denies: fever(s) ENMT: Reports: throat pain Card: Denies: chest pain Resp: Denies: dyspnea GI: Denies: vomiting : Denies: difficulty voiding Musc: Denies: neck pain Skin/Breast: Denies: rash PFSH ED PFSH: Medical History (Updated 12/01/22 @ 01:22 by SKYLAR Rabago) Accidental fall from chair Closed intertrochanteric fracture of right femur Dyspnea on exertion Major depressive disorder, recurrent severe without psychotic features Nicotine dependence, cigarettes, uncomplicated Right wrist pain Surgical History No pertinent past surgical history no prior surgery on 05/21/2021 Social History Alcohol intake: never Substance/Drug Use: never Lives independently: Yes Number of children: 2 Female Reproductive History: Para: 2 Physical Exam Const: COMMON NORMALS: alert HENMT: COMMON NORMALS: normocephalic and Normal external nose present HEAD & SCALP: normocephalic NOSE: Normal external nose present MOUTH: moist mucous membranes abnormal (Left palatine swelling and erythema) THROAT: posterior oropharynx abnormal (Open airway, mild erythema) erythema THROAT IMAGE: 1. Swelling and erythema Neck/C-Spine: COMMON NORMALS: full ROM Resp: COMMON NORMALS: normal respiratory effort and clear to auscultation bilaterally AUSCULTATION: clear to auscultation bilaterally Cardio: COMMON NORMALS: regular rate and regular rhythm RATE: regular rate RHYTHM: regular rhythm GI: COMMON NORMALS: Soft to palpation and non-tender PALPATION: Yes Soft to palpation : COMMON NORMALS: Yes no CVA tenderness BLADDER/KIDNEY EXAM: Yes no CVA tenderness Back/Pelvis: COMMON NORMALS: no CVA tenderness Extremity: COMMON NORMALS: full ROM Neuro: SENSORIUM/ORIENTATION: Yes alert Skin: COMMON NORMALS: turgor normal GENERAL SKIN EXAM: turgor normal Course ED course: 205, reviewed patient with Dr. Meeks who recommended we contact Dr. Weldon. Dr. Weldon was consulted and he agreed with plan to continue with clindamycin and dexamethasone and have her contact the office in the morning for further treatment and evaluation. Reviewed this with family and patient who agreed to plan. Patient was much improved continue to manage secretions and able to consume fluids. Vital Signs: Vital signs: Vital Signs Temperature 98.1 F 11/30/22 22:44 Pulse Rate 99 11/30/22 22:44 Respiratory Rate 16 11/30/22 22:44 Blood Pressure 118/75 11/30/22 22:44 Pulse Oximetry 91 11/30/22 22:44 Oxygen Delivery Me thod Room Air 11/30/22 22:44 MDM - General Adult Medical Decision Making 67-year-old female comes in today with complaints of sore throat and difficulty swallowing for 1 week. On exam patient's posterior pharynx slightly erythematous we do note asymmetry in the posterior pharynx with increased swelling and redness to the left upper palate. Vital signs are normal. Patient is managing secretions well. Differential diagnosis includes but not limited to tonsillar mass, carcinoma, abscess. Laboratory values noted a leukocytosis of 11. CBC and CMP otherwise was normal. CT noted a prominent left palatine tonsil with a peritonsillar abscess approximately 3 cm. Patient was medicated with clindamycin dexamethasone with improvement of sore throat and continue to manage secretions and able to consume water. Discussed patient with Dr. Carrasquillo who agreed to see patient in the office and recommended patient contact his office first thing in the morning. I reviewed this with patient who agreed to plan. Lab Data 11/30/22 23:31 11/30/22 23:[address] 11/30/22 23:18 IMPRESSION: 1. Prominent uvula and left palatine tonsil consistent with tonsillitis/pharyngitis with 3.4 x 2.4 x 2.6 cm left peritonsillar abscess. A necrotic left tonsillar mass could have similar appearance. 2. Upper lung zone emphysema and mild biapical scarring. Laboratory Results WBC 11.0 10^3/uL (4.0-10.0) H 11/30/22: RBC 4.99 10^6/uL (4.1-5.3) 11/30/22: Hgb 15.2 g/dL (11.5-15.3) 11/30/22 23: Hct 44.9 % (37.0-47.0) 11/30/22: MCV 90.0 fl (81-99) 11/30/22: MCH 30.5 pg (28.0-34.0) 11/30/22: MCHC 33.9 g/dL (30.0-36.0) 11/30/22: RDW 12.1 % (12.1-15.1) 11/30/22: Plt Count 213 10^3/cmm (130-400) 11/30/22: MPV 10.8 fL (7.4-10.4) H 11/30/22: Neut % (Auto) 72.6 % 11/30/22: Lymph % (Auto) 18.2 % 11/30/22: [place] % (Auto) 7.1 % 11/30/22: Eos % (Auto) 1.5 % 11/30/22: Baso % (Auto) 0.3 % 11/30/22: Neut # (Auto) 7.98 10^3/uL (1.8-7.7) H 11/30/22: Lymph # (Auto) 2.0 10^3/uL (0.8-4.8) 11/30/22: Willacy # (Auto) 0.8 10^3/uL (0.2-0.9) 11/30/22: Eos # (Auto) 0.2 10^3/uL (0.0-0.8) 11/30/22 Baso # (Auto) 0.0 10^3/uL (0.0-0.1) 11/30/22: Nucleated RBC % (auto) 0 % 11/30/22 Nucleated RBCs # 0.0 /100WBC 11/30/22 23:31 Sodium 136 mmol/L (136-145) 11/30/22 23:31 Potassium 3.8 mmol/L (3.5-5.1) 11/30/22 23:31 Chloride 98 mmol/L (98-107) 11/30/22 23:31 Carbon Dioxide 26 mmol/L (22-29) 11/30/22 23:31 Anion Gap 15.8 (5-19) 11/30/22 23:31 BUN 11 mg/dL (8-23) 11/30/22 23:31 Creatinine 0.7 mg/dL (0.5-0.9) 11/30/22 23:31 GFR Calculation 83.2 mL/min (90-130) L 11/30/22 23:31 Glucose 108 mg/dL (65-115) 11/30/22 23:31 Calculated Osmolality 282 mOsm/kg (285-295) L 11/30/22 23:31 Calcium 9.7 mg/dL (8.5-10.5) 11/30/22 23:31 Total Bilirubin 0.5 mg/dL (0.15-1.2) 11/30/22 23:31 AST 19 U/L (0-32) 11/30/22 23:31 ALT 11 U/L (0-33) 11/30/22 23:31 Alkaline Phosphatase 98 U/L (35-105) 11/30/22 23:31 Total Protein 8.0 g/dL (6.6-8.7) 11/30/22 23:31 Albumin 4.4 g/dL (3.5-5.2) 11/30/22 23:31 Globulin 3.6 g/dL (1.3-4.6) 11/30/22 23:31 Group A Strep Rapid Negative (Negative) 11/30/22 23:00 Discharge Plan Discharge Patient Disposition: Home Clinical Impression: Tonsillar abscess Condition: Stable Prescriptions: New clindamycin HCl 150 mg capsule 450 mg PO Q8H 7 Days Qty: 63 0RF dexamethasone 4 mg tablet 4 mg PO DAILY Qty: 5 0RF hydrocodone-acetaminophen 5-325 mg tablet 1 tab PO Q6H PRN (Reason: pain) Qty: 7 0RF No Action oxycodone-acetaminophen 5-325 mg tablet 1 tab PO Q4H PRN (Reason: pain) 7 Days Qty: 40 0RF sertraline 100 mg tablet 200 mg PO DAILY Qty: 60 2RF Ambien 5 mg tablet 5 mg PO BEDTIME Qty: 30 2RF acetaminophen 325 mg Tablet 6,650 mg PO QID PRN (Reason: Pain) albuterol sulfate 90 mcg/actuation HFA aerosol inhaler 2 inh INHALATION Q4H PRN (Reason: shortness of breath or wheezing) Qty: 18 0RF Discharge Orders: Discharge ED (Routine); Ordered 12/01/22 Ordered By: Severo King Referrals: Flower Blackburn FNP [Primary Care Provider] - Siddharth Carrasquillo MD [Physician] - Discharge Diet: Advance as tolerated Discharge Activity: Increase activity as tolerated Patient Instructions: Peritonsillar Abscess (ED), Opioid Safety Activity Restrictions/Additional Instructions: Take antibiotic and steroids as directed. Drink plenty of fluids. Use acetaminophen and ibuprofen to control pain. Use hydrocodone for severe pain. Follow-up with primary care as needed. Case management will contact you for follow-up appointment with corporate securities research analyst for further evaluation and treatment. Return to the ER for worsening symptoms or new concerns. Coding Level of Care Code ED Type Rolling Machine Operator for Nika Lopez
[2022-11-30 23:16] LABS: Rapid Strep A Test Negative (Negative)
--- NOTE | 2022-11-30 23:18 | CTR_ITS ---
PROCEDURE INFORMATION: Exam: CT Neck With Contrast Exam date and time: 12/01/2022 12:03 AM Age: 67 years old Clinical indication: Patient HX: Lt sided throat pain; Additional info: Tonsilar abscess TECHNIQUE: Imaging protocol: Computed tomography of the neck with contrast. Radiation optimization: All CT scans at this facility use at least one of these dose optimization techniques: automated exposure control; mA and/or kV adjustment per patient size (includes targeted exams where dose is matched to clinical indication); or iterative reconstruction. Contrast material: OMNI 350; Contrast volume: 70 ml; Contrast route: INTRAVENOUS (IV); REPORTING DATA: Count of CT and Cardiac NM exams in prior 12 months: This patient has received 0 known CTs and 0 known cardiac nuclear medicine studies in the 12 months prior to the current study. COMPARISON: CR XR chest 1V portable [id number] 05/21/2021 10:07 PM RADIATION DOSE METRICS: Total DLP (mGy-cm): 214.65 FINDINGS: Limitations: Mild motion artifact. Pharynx: Prominent uvula and left palatine tonsil consistent with tonsillitis/pharyngitis with 3.4 x 2.4 x 2.6 cm left peritonsillar abscess. Punctate bilateral calcified tonsilliths. Larynx: No acute abnormality. Normal epiglottis. Prevertebral and retropharyngeal spaces: No significant prevertebral soft tissue swelling. No fluid collection. Salivary glands: No acute abnormality. Glands are grossly normal in size. Thyroid: No acute abnormality. No enlarged or calcified nodules. Lymph nodes: Small nonspecific bilateral cervical lymph nodes left greater than right. Trachea: Normal. Lungs: Upper lung zone emphysema and mild biapical scarring. Bones/joints: No acute osseous abnormality. No acute fracture. Soft tissues: No significant soft tissue abnormalities. CT/CT neck w con* [id number] IMPRESSION: 1. Prominent uvula and left palatine tonsil consistent with tonsillitis/pharyngitis with 3.4 x 2.4 x 2.6 cm left peritonsillar abscess. A necrotic left tonsillar mass could have similar appearance. 2. Upper lung zone emphysema and mild biapical scarring.
[2022-11-30 23:37] LABS: Basophils % 0.3 %; Eosinophils # 0.2 10^3/uL (0.0-0.8); Eosinophils % 1.5 %; Hematocrit 44.9 % (37.0-47.0); Hemoglobin 15.2 g/dL (11.5-15.3); Lymphocytes % 18.2 %; Mean Corpuscular HGB Conc 33.9 g/dL (30.0-36.0); Mean Corpuscular Hemoglobin 30.5 pg (28.0-34.0); Mean Platelet Volume 10.8 fL (7.4-10.4); Monocytes # 0.8 10^3/uL (0.2-0.9); Monocytes % 7.1 %; Neutrophils # 7.98 10^3/uL (1.8-7.7); Neutrophils % 72.6 %; Nucleated Red Blood Cells % 0 %; Platelet Count 213 10^3/cmm (130-400); Red Blood Count 4.99 10^6/uL (4.1-5.3); Red Cell Distribution Width 12.1 % (12.1-15.1)
[2022-11-30] MEDS: clindamycin 600 MG/50 ML PREMIX 100 MG IV (23:41)
[2022-11-30] MEDS: ketorolac 30 mg/mL INJ 15 MG IVP (23:43)
[2022-11-30] MEDS: dexamethasone 10 mg/mL INJ IVP (23:43)
[2022-11-30 23:53] LABS: Alanine Aminotransferase 11 U/L (0-33); Albumin Level 4.4 g/dL (3.5-5.2); Alkaline Phosphatase 98 U/L (35-105); Anion Gap 15.8 (5-19); Aspartate Amino Transferase 19 U/L (0-32); Blood Urea Nitrogen 11 mg/dL (8-23); Calcium 9.7 mg/dL (8.5-10.5); Carbon Dioxide 26 mmol/L (22-29); Chloride 98 mmol/L (98-107); Globulin 3.6 g/dL (1.3-4.6); Glomerular Filtration Rate 83.2 mL/min (90-130); Glucose 108 mg/dL (65-115); Osmolality Calculated 282 mOsm/kg (285-295); Potassium 3.8 mmol/L (3.5-5.1); Sodium 136 mmol/L (136-145); Total Bilirubin 0.5 mg/dL (0.15-1.2)
[2022-12-01] MEDS: iohexol 350 mg/mL 500 mL Btl (per mL) IV (00:08)
[2022-12-01 02:11] VITALS: BP 118/75; PULSE 99; RESP 16; TEMP 36.7; O2SAT 91
--- NOTE | 2022-12-02 11:58 | DCPLANNER ---
Addendum entered by Pearl Vázquez 12/08/22 11:04: operations program manager received the following message from the ENT clinic regarding follow up appointment: patient was seen by Dr. Carrasquillo Original Note: operations program manager had message to schedule a follow up appointment for patient with ENT. operations program manager sent patients information to the front office staff at ENT. Patients information will be printed and reviewed. Clinic will call patient with appointment information.
== END 2022-12-01 02:12 | disposition home or self-care (01) ==
PROVIDERS: Emergency Provider Nurse Practitioner Family; PCP Nurse Practitioner
DX: J36 Peritonsillar abscess (principal)
CPT/HCPCS: 70491; 80053; 85025; 87040; 87081; 87880; 96365; 96366; 96375; 99285; J1100; J1885; J3490; Q9967

== ENCOUNTER → 2023-06-02 09:05 | Outpatient (BNVA) | payer MEDICARE, MEDICAID, SELFPAY | PROVIDERS: PCP Nurse Practitioner; Visit Provider Family Medicine Adult Medicine | DX: E78.5 Hyperlipidemia, unspecified (principal); J43.9 Emphysema, unspecified; F33.2 Major depressive disorder, recurrent severe without psychotic features; Z82.49 Family history of ischemic heart disease and other diseases of the circulatory system; G47.00 Insomnia, unspecified | CPT/HCPCS: 80053; 80061; 85025 ==

== ENCOUNTER 2023-10-20 09:50 | Outpatient (CLI) | payer MEDICARE, MEDICAID, SELFPAY ==
--- NOTE | 2023-10-20 09:45 | CT_ITS ---
WS: [id number] LDCT LUNG CANCER SCREENING HISTORY: smoker TECHNIQUE: Axial imaging performed from the apices to 1 cm below the costophrenic angles. Coronal and sagittal reformats are submitted with axial MIP series. All CT scans at [facility] use at least one of these dose optimization techniques: automated exposure control; mA and/or kV adjustment per patient size (includes targeted exams where dose is matched to clinical indication); or iterativ e reconstruction. DLP: 41.50 mGy.cm DIvol: Mean CTDIvol: 0.70 (mGy) COMPARISON: None available. Diagnostic quality: Satisfactory Lungs: Hyperinflated lungs with central emphysema. Pleural tagging and scarring LEFT upper lobe. Ther e is very minimal thickening along the fissures greatest involving the RIGHT fissures. Mild bronchiec tasis RIGHT upper, middle and lower lobes. Thin linear scar LEFT lung base. Heart: Normal size heart with no pericardial effusion.. Other findings: Very mild atherosclerosis aorta. No aneurysm. Normal sized pulmonary artery. Mild sca ttered coronary artery calcifications. Thoracolumbar scoliosis. T6 and T8 mild anterior compression f ractures. IMPRESSION: CT/CT lung screening 60099 LUNG-RADS: 1-Negative FOLLOW UP: 12 Month: Continue annual screening with LDCT OTHER FINDINGS (S MODIFIER): None.
== END 2023-10-20 09:51 | disposition home or self-care (01) ==
LOC: RAD 09:50
PROVIDERS: PCP Family Medicine Adult Medicine; Visit Provider Family Medicine Adult Medicine
DX: Z12.2 Encounter for screening for malignant neoplasm of respiratory organs (principal); F17.210 Nicotine dependence, cigarettes, uncomplicated; J43.2 Centrilobular emphysema; J47.9 Bronchiectasis, uncomplicated; J98.4 Other disorders of lung
CPT/HCPCS: 71271

== ENCOUNTER → 2024-07-23 14:08 | Outpatient (BNVA) | payer MEDICARE, MEDICAID, SELFPAY | PROVIDERS: PCP Family Medicine Adult Medicine; Visit Provider Family Medicine | DX: E78.5 Hyperlipidemia, unspecified (principal); F33.2 Major depressive disorder, recurrent severe without psychotic features; R63.4 Abnormal weight loss; R06.02 Shortness of breath; J43.1 Panlobular emphysema; F17.210 Nicotine dependence, cigarettes, uncomplicated; G47.01 Insomnia due to medical condition | CPT/HCPCS: 80053; 80061; 84443; 85025 ==

== ENCOUNTER 2024-08-07 11:04 | Outpatient (CLI) | payer MEDICARE, MEDICAID, SELFPAY ==
[2024-08-07 11:17] VITALS: PULSE 78; RESP 18; O2SAT 97
[2024-08-07] MEDS: albuterol 2.5 mg/3 mL Neb INHALATION (11:17)
== END 2024-08-07 11:05 | disposition home or self-care (01) ==
LOC: RT 11:04
PROVIDERS: PCP Family Medicine; Visit Provider Family Medicine
DX: J43.1 Panlobular emphysema (principal)
CPT/HCPCS: 94060; J7613